=== PATIENT | male | born 1955 | race Caucasian/White ===

== ENCOUNTER 2024-06-22 21:32 | Observation (INO) | payer OTHER, SELFPAY ==
[2024-06-22] VITALS (9 sets, daily range): BP systolic 107–147; BP diastolic 71–91; BMI 29.7
[2024-06-22 18:58] LABS: Glucose - Point of Care 224 mg/dl (70-99)
--- NOTE | 2024-06-22 19:03 | ED.CVA ---
History of Present Illness
General
Chief Complaint: CVA/TIA Symptoms
Time Seen by Provider: 06/22/24 18:58
Onset of Stroke Symptoms
Onset of symptoms known: Yes
Date of onset of symptoms: 06/22/24
Time of onset of symptoms: 18:25
History of Present Illness
History of Present Illness:
68-year-old male with history of diabetes, hypertension, hyperlipidemia presenting to the emergency department with strokelike symptoms. Patient reports he was at work and had sudden onset of right upper and lower extremity weakness, was not able
to move his arm or leg at all. Symptoms started about 30 minutes prior to arrival. By the time medics had arrived, symptoms were improving. Still reports some residual weakness. Denies any issues with dysphagia or sensation. Denies any history
of stroke in the past. He is not on any thinners. Denies fever or recent illness. Denies additional medical complaints
Past History
Past History
ED Past Medical History: HTN and NIDDM
ED Past Surgical History: None
Social History
Tobacco: Non-smoker
Alcohol: Occasional
Personal:
Living: with family
Phy Exam
Physical Exam
Physical Exam:
General: Well-appearing, no clinical signs of dehydration, nontoxic and in no acute distress
HEENT: protecting airway
Neck: appears supple
CV: Normal heart rate, regular rhythm
Resp: No accessory muscle use, no increased work of breathing
Abd: Soft and non-distended, no tenderness to palpation, normal bowel sounds
Extremities: No deformities, no swelling, no erythema, pulses and sensation intact
Neuro: alert, slight weakness to the right upper extremity in comparison to the left. Mild drift to the right lower extremity.
: deferred
Rectal: deferred
Psych: Normal affect
Skin: Intact
Scores
NIH Stroke Score
Level of Consciousness: 0 - Alert
LOC Questions: 0-Answers both correctly
LOC Commands: 0-Performs both correctly
Best Horizontal Gaze: 0-Normal
Visual Hoffman: 0=Normal, no visual loss
Facial Palsy: 0=Normal, symmetrical
Motor - Right Arm: 0=No drift 10 seconds
Motor - Left Arm: 0=No drift 10 seconds
Motor - Right Le-Drift < 5 seconds
Motor - Left Le-No drift 5 seconds
Limb Ataxia: 0-Absent
Sensation: 0-Normal
Best Language: 0-No aphasia
Dysarthria: 0-Normal
Extinction and Inattention: 0-No abnormality
Total Score:: 1
Course
Orders/Labs/Results
Orders:
Orders
06/22/24 18:55
EKG [Electrocardiogram (*1)] Urgent
Reason for Study: Fatigue / Weakness
EKG- Treatment ONCE
06/22/24 18:58
CT HEAD STROKE ALERT W/o Cont Urgent
Comment:
Reason For Exam: right weakness
CT HEAD/NECK ANG STROKE ALERT Urgent
Comment:
Reason For Exam: right weakness
06/22/24 19:24
Complete Blood Count/With Diff Urgent
Comprehensive Metabolic Panel Urgent
PTT Urgent
Prothrombin Time Urgent
Abnormal Lab Results
06/22/24 06/22/24
18:56 19:24
Absolute Monos (auto) 0.7 H 10^3/uL
(0.1-0.6)
Lymphocytes % 19.7 L %
(20.5-51.1)
Monocytes % 9.5 H %
(1.7-9.3)
PT 14.8 H Sec
(11.4-14.6)
BUN 8 L mg/dl
(9-20)
Glucose 245 H mg/dl
(70-99)
POC Glucose 224 H mg/dl
(70-99)
06/22/24 19:24
06/22/24 19:24
Vital Signs
Initial and Last Documented VS:
Initial Vital Signs
Temp Pulse Resp BP Pulse Ox
98.6 F 111 14 147/86 97
06/22/24 19:17 06/22/24 19:17 06/22/24 19:17 06/22/24 19:17 06/22/24 19:17
Last Documented Vital Signs
Temp Pulse Resp BP Pulse Ox
98.6 F 111 14 147/86 97
06/22/24 19:17 06/22/24 19:17 06/22/24 19:17 06/22/24 19:17 06/22/24 19:17
MDM/Problems Addressed
MDM/Problems Addressed:
68-year-old male with history of hypertension, hyperlipidemia, diabetes presenting to the emergency department for right-sided weakness, started 30 minutes prior to arrival. Vital signs on arrival significant for tachycardia.
Patient prehospital stroke alert. On my assessment, mild weakness to the right upper extremity with slight drift to the right lower extremity. NIH 1. Symptoms are overall improving, so do not feel patient requires tPA. Plan for CT/CT angio. Did
discuss with neurology, likely plan for admission for continued stroke workup.
19:00 -CT head and CT angio negative. Will administer aspirin and Plavix. Plan for admission for continued stroke workup, as well as MRI
*Critical Care Note
Total Time (30-74mins, 75-104mins- exclusive of procedures): Not Applicable
ED Attending Note
-
Portions of this chart may have been created with voice recognition software.� Occasional wrong word or��sound alike� substitutions may have occurred due to the inherent limitations of voice recognition software.
Discharge Plan
Departure
Prescriptions:
No Action
cetirizine 10 mg Tablet
10 mg PO DAILY
lisinopril 10 mg Tablet
10 mg PO DAILY
lansoprazole [Prevacid 24Hr] 15 mg Capsule,Delayed Release(Dr/Ec)
15 mg PO DAILYPRN PRN (Reason: gi issues)
pioglitazone 30 mg Tablet
30 mg PO DAILY
Jardiance 25 mg Tablet
25 mg PO DAILY
Interventions
Interventions:
*Risk Screen - Suicide Last Done: 06/22/24 18:55
*General Assessment Last Done: 06/22/24 18:55
*Neglect/Abuse Screening Last Done: 06/22/24 18:55
*ED COVID-19 Vaccine History Last Done: 06/22/24 18:55
ED- Pulmonary Assessment Last Done: 06/22/24 18:55
ED- Neurological Assessment Last Done: 06/22/24 18:55
ED- Cardiac Assessment Last Done: 06/22/24 18:55
Discharge Date and Time
Print Language: SPANISH
[2024-06-22 19:36] LABS: % Basophils 0.8 % (0-2); % Eosinophils 1.2 % (0-6); % Immature Granulocytes 0.4 % (0-0.5); % Lymphocytes 19.7 % (20.5-51.1); % Monocytes 9.5 % (1.7-9.3); % Neutrophils 68.4 % (42.2-75.2); Absolute Basophils 0.1 10^3/uL (0-0.2); Absolute Eosinophils 0.1 10^3/uL (0-0.7); Absolute Lymphocytes 1.5 10^3/uL (1.2-3.4); Absolute Monocytes 0.7 10^3/uL (0.1-0.6); Absolute Neutrophils 5.1 10^3/uL (1.4-6.5); Hematocrit 44.7 % (39.0-52.0); Mean Corp Hgb Conc. 33.6 g/dL (33.0-37.0); Mean Corpuscular Hgb 30.9 pg (27.0-31.0); Mean Corpuscular Volume 92.2 fL (80.0-94.0); Mean Platelet Volume 9.2 fL (7.4-10.4); Nucleated Red Blood Cells % 0 % (-); Platelet Count 207 10^3/uL (130-400); Red Blood Cell Count 4.85 10^6/uL (4.70-6.10); Red Cell Dist. Width 12.8 % (11.5-14.5); White Blood Cell Count 7.5 10^3/uL (4.8-10.8)
[2024-06-22 19:44] LABS: INR 1.13; PT 14.8 Sec (11.4-14.6)
[2024-06-22 19:45] LABS: APTT 29.2 Sec (23.4-35.0)
[2024-06-22 19:51] LABS: ALT (SGPT) 15 U/L (0-50); AST (SGOT) 23 U/L (17-59); Albumin 4.3 g/dl (3.5-5.0); Alkaline Phosphatase 73 U/L (38-126); Blood Urea Nitrogen 8 mg/dl (9-20); Calcium 8.6 mg/dl (8.4-10.2); Carbon Dioxide 25 mmol/L (22-30); Chloride 102 mmol/L (98-107); Estimated Creatinine Clearance 91 ml/min; Glucose 245 mg/dl (70-99); Potassium 3.8 mmol/L (3.5-5.1); Sodium 140 mmol/L (135-145); Total Bilirubin 0.7 mg/dl (0.2-1.3); Total Protein 7.1 g/dl (6.3-8.2); eGFR > 60.00
--- NOTE | 2024-06-22 20:42 | HPS.HSE ---
Family Physician
-
Family Physician: Shravan Mg
Chief Complaint
-
weakness
History of Present Illness
68-year-old male past medical history of diabetes, hypertension, hyperlipidemia, presenting with right-sided weakness. He was at work and suddenly developed right upper and lower extremity weakness and was not able to move his arm or leg at all.
He also had numbness this region. Symptoms started 30 minutes prior to arrival. Symptoms were improving upon arrival. He still has some residual weakness. He denies any difficulty swallowing or numbness or tingling. Denies prior stroke. Denies
any fever or recent illness. He did have mild headache but denies, dizziness or vertigo or difficulty swallowing.
He does not check his blood sugars regularly but denies any episodes of low blood sugars.
Drinks alcohol occasionally. Denies smoking.
No family history of strokes.
Medical History
Past Medical History
Past Medical History: Reports Other (diabetes, hypertension, hyperlipidemia)
Past Surgical History: Reports None
Social History
Tobacco: Non-smoker
Alcohol: Occasional
Family History
Family History: Not pertinent
Allergies / Home Medications
Allergies reflects when Allergies were last updated in [employer].
Home Medications with original date entered in [employer]
Allergy/Medication List:
Allergies
Allergy/AdvReac Type Severity Reaction Status Date / Time
acetaminophen [From Percocet] Allergy Unknown Verified 06/22/24 18:54
oxycodone [From Percocet] Allergy Unknown Verified 06/22/24 18:54
Home Medications
cetirizine 10 mg tablet 10 mg PO DAILY 06/22/24
empagliflozin 25 mg tablet (Jardiance) 25 mg PO DAILY 06/22/24
lansoprazole 15 mg capsule,delayed release (Prevacid 24Hr) 15 mg PO DAILYPRN PRN gi issues 06/22/24
lisinopril 10 mg tablet 10 mg PO DAILY 06/22/24
pioglitazone 30 mg tablet 30 mg PO DAILY 06/22/24
Review of Systems
-
History Source: Patient
A 12 point ROS was completed and negative except as noted: Yes
Constitutional: Reports No Symptoms
EENT: Reports No Symptoms
Respiratory: Reports No Symptoms
Cardiac: Reports No Symptoms
Abdomen/GI: Reports No Symptoms
: Reports No Symptoms
Musculoskeletal: Reports No Symptoms
Skin: Reports No Symptoms
Neurological: Reports See HPI
Endocrine: Reports No Symptoms
Hematologic/Lymphatic: Reports No Symptoms
Psych: Reports No Symptoms
Physical Exam
Vital Signs
Vital Signs
Temp Pulse Resp BP Pulse Ox
98.6 F 99 12 145/80 97
06/22/24 19:17 06/22/24 20:12 06/22/24 20:00 06/22/24 20:00 06/22/24 20:00
Physical Exam
General: Well Developed, Well Nourished and No Apparent Distress
HEENT: NormoCephalic, Moist mucous membranes and Atraumatic
Respiratory: Clear
Cardiac: S1/S2 and Regular Rhythm; No Murmur or Rub
GI: Soft, Non Tender, Non Distended and Normal Bowel Sounds; No Organomegaly
Rectal: Deferred by Provider
Musculoskeletal: No Clubbing, No Cyanosis and No Edema
Skin: No Rash
Neuro: Nonfocal/grossly intact
Laboratory Results
-
06/22/24 19:24
06/22/24 19:24
Laboratory Results
PT 14.8 Sec (11.4-14.6) H 06/22/24 19:24
INR 1.13 06/22/24 19:24
APTT 29.2 Sec (23.4-35.0) 06/22/24 19:24
Total Bilirubin 0.7 mg/dl (0.2-1.3) 06/22/24 19:24
AST 23 U/L (17-59) 06/22/24 19:24
ALT 15 U/L (0-50) 06/22/24 19:24
Alkaline Phosphatase 73 U/L (38-126) 06/22/24 19:24
Data Reviewed
-
Lab Data: Labs Reviewed by me
Old Records: Reviewed
Impression/Plan
-
IMPRESSION:
PLAN:
# TIA versus CVA
-NIH of 1
-CTA head and neck shows no acute vascular pathology
-Aspirin and Plavix
-Check A1c and lipid panel
-Check MRI brain
-Permissive hypertension
-Neurology consulted
Type 2 diabetes
-Continue empagliflozin, pioglitazone
Essential hypertension
-Continue lisinopril
Hyperlipidemia
GERD
-Continue lansoprazole
Full code
DVT prophylaxis�SCDs
Diabetic diet
[2024-06-22] MEDS: MOTRIN 600 MG PO (21:01)
[2024-06-22] MEDS: PLAVIX 75 MG PO (22:22)
[2024-06-22] MEDS: ASPIRIN 325 MG PO (22:22)
[2024-06-22] MEDS: FLUSH (NSS) 1 FLUSH IV (22:52)
[2024-06-23] VITALS (15 sets, daily range): BP systolic 100–143; BP diastolic 55–88; PULSE 92–95; O2SAT 97–98; BMI 28.0
[2024-06-23 07:01] LABS: HDL Cholesterol 44 mg/dl; LDL Cholesterol, Calculated 164 mg/dl; Total Cholesterol 229 mg/dl (50-199); Triglyceride 105 mg/dl (10-149); Very Low Density Lipoprotein 21 mg/dl (0-30)
--- NOTE | 2024-06-23 07:50 | EDRN ---
Provider TT for diet order
[2024-06-23] MEDS: ACTOS 30 MG PO (08:22)
[2024-06-23] MEDS: ZESTRIL 10 MG PO (08:22)
[2024-06-23] MEDS: FARXIGA 10 MG PO (08:22)
--- NOTE | 2024-06-23 08:37 | CON.NEURO ---
Neuro Assessment/Plan
Assessment
Acute onset of right arm and leg weakness with spontaneous resolution
Most likely secondary to TIA based on MRI of brain results failed to demonstrate a area of permanent structural damage
Plan
Provide dual antiplatelet therapy aspirin and clopidogrel for a total of 21 days, then aspirin alone, lifelong
Based on lipid profile, initiate rosuvastatin 40 mg daily as the patient was intolerant to the use of a statin previously
Goal of normoglycemia
Goal of normotension
Rehabilitation evaluations
DVT prophylaxis
Provide medical educational materials
Check hypercoagulable testing 6 weeks after onset of symptoms
Cardiac monitoring as an outpatient preferably 7 days
Will follow as needed
Consultation
Order
Date of Consultation: 06/23/24
Requesting Provider: Hospitalists
Reason for Consult: Right-sided weakness
Subjective/Objective
Subjective Data
Date of Service: June 23, 2024
Right-Handed
68-year-old male presented to this hospital's emergency department with acute onset right-sided weakness. He was at work and suddenly developed right upper then right lower extremity weakness. At the time was not able to move his arm or leg at
all. He also had numbness this region.
Symptoms were improving upon arrival to this hospital's emergency department. Symptoms lasted less than 2 hours and is now back at baseline. No other associated symptoms.
No prior episodes, no significant medical changes recently.
Right sided posterior headache intermittently throughout the night which has spontaneously resolved.
Objective Data
Vital Signs
Temp Pulse Resp BP Pulse Ox
37.0 C 90 14 123/84 94
06/22/24 19:17 06/23/24 08:22 06/23/24 07:45 06/23/24 08:22 06/23/24 07:45
Lab Results
06/22/24 19:24
06/22/24 19:24
PT 14.8 Sec (11.4-14.6) H 06/22/24 19:24
INR 1.13 06/22/24 19:24
APTT 29.2 Sec (23.4-35.0) 06/22/24 19:
Sodium 140 mmol/L (135-145) 06/22/24 19:24
Potassium 3.8 mmol/L (3.5-5.1) 06/22/24:
BUN 8 mg/dl (9-20) L 06/22/24 19:24
Glucose 245 mg/dl (70-99) H 06/22/24:24
Calcium 8.6 mg/dl (8.4-10.2) 06/22/24:
LDL Cholesterol, Calc 164 mg/dl 06/23/24 06:18
Patient Allergies
acetaminophen [From Percocet] Allergy (Verified 06/22/24 18:54)
Unknown
oxycodone [From Percocet] Allergy (Verified 06/22/24 18:54)
Unknown
CVA Assessment
Onset of Stroke Symptoms
Onset of symptoms known: Yes
Date of onset of symptoms: 06/22/24
Time of onset of symptoms: 18:30
Time pt last seen normal is known: Yes
Date last time pt seen normal: 06/22/24
Time last time pt seen normal: 20:00
NIH Stroke Score
Level of Consciousness: 0 - Alert
LOC Questions: 0-Answers both correctly
LOC Commands: 0-Performs both correctly
Best Horizontal Gaze: 0-Normal
Visual Hoffman: 0=Normal, no visual loss
Facial Palsy: 0=Normal, symmetrical
Motor - Right Arm: 0=No drift 10 seconds
Motor - Left Arm: 0=No drift 10 seconds
Motor - Right Le-No drift 5 seconds
Motor - Left Le-No drift 5 seconds
Limb Ataxia: 0-Absent
Sensation: 0-Normal
Best Language: 0-No aphasia
Dysarthria: 0-Normal
Extinction and Inattention: 0-No abnormality
Total Score:: 0
Tenecteplase Contraindications
Inclusion and Exclusion criteria reviewed: Yes
IAT Contraindications: NIHSS < 6
Review of Systems
-
History Source: Patient
All other systems: Reviewed and negative
EENT: Negative Decreased Vision or Swallowing Difficulty
Respiratory: Negative Trouble Breathing
Cardiac: Negative Chest Pain
Abdomen/GI: Negative Incontinence of Stool
Genitourinary: Negative Incontinence
Musculoskeletal: Negative Back Pain or Neck Pain
Neuro: Headache; Negative Dizzy
Physical Exam
-
General: No Apparent Distress and Appears Stated Age
Eyes: OU Absent Papilledema, Round OU, [place] Conjunctivae and No Ptosis
HEENT: Anicteric and Moist Mucous Membranes
Neck: Full Range of Motion
Respiratory: No Dyspnea
Cardiac: No JVD
GI: Non-distended
Skin: Unremarkable
Extremities: No Clubbing, No Cyanosis and No Edema
Psych: Intact Judgement/Insight
Extended Neurological Exam
Mood & Affect: Mood Unremarkable and Affect Unremarkable
Attention Span & Concentration: Awake, Alert, Interactive and No Difficulty with 2 Step Request
Memory: Unremarkable
Tremor: Hand Tremor Absent and Head Tremor Absent
Speech: Quality Unremarkable and Pressured
Cranial Nerve II: Left Eye: Pupillary Reactivity Unremarkable, Pupillary Size Unremarkable and Visual Hoffman Intact
Cranial Nerve II: Right Eye: Pupillary Reactivity Unremarkable, Pupillary Size Unremarkable and Visual Hoffman Intact
Cranial Nerves III, IV, : Extraocular Movement: Extraocular Movement Full in all Directions
Cranial Nerve VII: Facial Symmetry: Normal Facial Symmetry
Cranial Nerve VIII: Hearing: Unremarkable Hearing to Normal Conversational Volume
Cranial Nerves IX, X: Palate Movement: Palate Elevation Symmetric
Cranial Nerve XI: Shoulder Shrug: Unremarkable
Cranial Nerve XII: Tongue Protusion: Midline
Muscle Strength, Overall: Full Throughout
Muscle Bulk & Tone: Bulk Unremarkable and Tone Unremarkable
Pronator Drift: No Drift in Upper Extremities
Deep Tendon Reflexes: Absent Throughout
Touch Sensation: Unremarkable and Double Simultaneous Stimulation Unremarkable
Coordination: [id number] Testing Unremarkable
Babinski Sign: Absent Bilaterally
Data Reviewed
-
CT-A: Report Reviewed
CT Head: Report Reviewed
MRI Head: Report Reviewed
Labs: Report Reviewed
Lipid Profile: Ordered
Reviewed with: Physician, Nurse Practioner and Patient
Old Records: Summarized
Medications
-
Active Medications
Generic Name Dose Route Start Last Admin
Trade Name Freq PRN Reason Stop Dose Admin
Acetaminophen 650 mg 06/23/24 08:21
Acetaminophen 325 Mg Tablet PO 07/21/24 08:20
Q4HPRN PRN
mild pain/JACKSON/temp> 100.4F
Cetirizine HCl 10 mg 06/23/24 08:00 06/23/24 08:24
Cetirizine Hcl 10 Mg Tablet PO 07/21/24 07:59 Not Given
DAILY ROMY
Dapagliflozin 10 mg 06/23/24 08:00 06/23/24 08:22
Dapagliflozin (Farxiga) 10 Mg Tablet PO 07/21/24 07:59 10 mg
DAILY ROMY Administration
Dextrose 12.5 grams 06/23/24 08:22
Dextrose 50% (0.5 Grams/Ml) 50 Ml Syringe IV 07/21/24 08:21
[id number] PRN
hypoglycemia
Protocol
Glucagon 1 mg 06/23/24 08:22
Glucagon 1 Mg Vial IM 07/21/24 08:21
PRN PRN
hypoglycemia
Protocol
Insulin Aspart 0 units 06/23/24 11:30
Insulin Aspart Low Resistance 300 Units/3 Ml Pen.Injctr SC 07/21/24 11:29
AC ROMY
Protocol
Lisinopril 10 mg 06/23/24 08:00 06/23/24 08:22
Lisinopril 10 Mg Tablet PO 07/21/24 07:59 10 mg
DAILY ROMY Administration
Ondansetron HCl 4 mg 06/23/24 08:21
Ondansetron 4 Mg/2 Ml Vial IV 07/21/24 08:20
Q6HPRN PRN
nausea and vomiting
Pantoprazole Sodium 20 mg 06/22/24 21:58
Pantoprazole 20 Mg Delayed Release Tablet PO 07/20/24 21:57
DAILYPRN PRN
gi issues
Pioglitazone HCl 30 mg 06/23/24 08:00 06/23/24 08:22
Pioglitazone Hcl 30 Mg Tablet PO 07/21/24 07:59 30 mg
DAILY ROMY Administration
Sodium Chloride 0 flush 06/22/24 22:00 06/22/24 22:52
Sodium Chloride 0.9% (Flush) Syringe IV 07/20/24 21:59 1 flush
PER PROTOCOL ROMY Administration
Home Medications
�Medication �Instructions �Recorded
cetirizine 10 mg tablet 10 mg PO DAILY 06/22/24
empagliflozin 25 mg tablet 25 mg PO DAILY 06/22/24
(Jardiance)
lansoprazole 15 mg capsule,delayed 15 mg PO DAILYPRN PRN gi issues 06/22/24
release (Prevacid 24Hr)
lisinopril 10 mg tablet 10 mg PO DAILY 06/22/24
pioglitazone 30 mg tablet 30 mg PO DAILY 06/22/24
Past History
Past History
ED Past Medical History: HTN, Hypercholesterolemia and NIDDM
ED Past Surgical History: Appendectomy and Orthopedic (Arthroplasty)
Social History
Tobacco: Non-smoker
Alcohol: Occasional
Personal:
Living: with family
Family History
Family History: Other (Reviewed and noncontributory)
[2024-06-23 08:58] LABS: Glycohemoglobin (HgbA1c) 8.3 % (4.0-5.6)
[2024-06-23] MEDS: ASPIR LOW (ENTERIC COATED) 81 MG PO (09:29)
[2024-06-23] MEDS: PLAVIX 75 MG PO (09:30)
[2024-06-23] MEDS: TRILEPTAL 150 MG PO (10:22)
[2024-06-23 13:11] LABS: Glucose - Point of Care 182 mg/dl (70-99)
[2024-06-23] MEDS: NOVOLOG FLEXPEN-LOW RESISTANCE 1 UNITS SC (13:11)
--- NOTE | 2024-06-23 13:26 | CON.CAR ---
Addendum entered and electronically signed by Kirill Key MD 06/23/24 16:18:
I saw and examined the patient.
The DYE COLORIST FORMULATOR's note was reviewed and I agree with the note.
Comment: 68 yo with AoV disease, HTN, DM, mixed hyperlipidemia with an impressive TIA (Right hemiparesis) last about 2 hours. CTA of neck/head negative. CT/MR of head negative for bleed/stroke. We will begin our evaluation with in-hospital
telemetry and echo. For TIA at his age I am not sure we have an indication for a AFTAB or insertable loop monitor but will likely pursue a 30 day monitor.
Will review echo. I reviewed signs and symptoms of aortic stenosis that would prompt evaluation to consider aortic valve replacement.
Aggressive risk factor control (DM/lipids/BP) per PCP will be appropriate. Antiplatelet therapy directed by neurology will be appropriate. We have initiated high intensity statin. Years ago he stopped a statin for knee pain. I explained that
statin side effect is much more muscular pain and not so much joint pain. He agreed to retry statin. He has no heart failure sx, no syncope, and no anginal symptoms.
Original Note:
Consultation
Consultation Request
Date/Time Consultation Requested: 06/23/2024 12:30
Date/Time Consultation Performed: 06/23/2024 13:15
Requesting Provider: Dr. Aurelia Rutherford
Performing Provider: TED Mcmullen for Dr. Key
Reason for Consultation: TIA
Medical History
-
Chief Complaint: Right-sided weakness
History of Present Illness:
Rodriguez High is a 68-year-old male with hypertension, dyslipidemia, and NIDDM who presented with the emergency department with acute onset right-sided weakness. He was working when he had a sudden onset of right upper than lower extremity
weakness. He was unable to move his arm and leg at all. He also reported numbness. It lasted approximately 20 minutes. It had resolved when he arrived to the emergency department. He endorsed an associated posterior right sided headache the
night prior which spontaneously resolved. He has been evaluated by neurology. Cardiology has been asked for consultation.
Past Medical History
Past Medical History: HTN, Hypercholesterolemia and NIDDM
Social History
Tobacco: Non-Smoker
Alcohol: Occasional
Drug: None
Personal:
Living: With Family
Employment: Employed
Family History
Family History: Reviewed & Not Pertinent
Allergies / Home Medications
Allergy/AdvReac Type Severity Reaction Status Date / Time
acetaminophen [From Percocet] Allergy Unknown Verified 06/22/24 18:54
oxycodone [From Percocet] Allergy Unknown Verified 06/22/24 18:54
�Medication �Instructions �Recorded �Confirmed �Type
cetirizine 10 mg tablet 10 mg PO DAILY Allergies 06/22/24 06/22/24 History
empagliflozin 25 mg tablet 25 mg PO DAILY Heart 06/22/24 06/22/24 History
(Jardiance) Disease/Condition
lansoprazole 15 mg capsule,delayed 15 mg PO DAILYPRN PRN gi issues 06/22/24 06/22/24 History
release (Prevacid 24Hr)
lisinopril 10 mg tablet 10 mg PO DAILY Blood Pressure 06/22/24 06/22/24 History
pioglitazone 30 mg tablet 30 mg PO DAILY Diabetes 06/22/24 06/22/24 History
Review of Systems
-
History Source: Patient
All other systems: Negative unless noted
Constitutional: No Symptoms
EENT: No Symptoms
Respiratory: No Symptoms
Cardiac: No Symptoms
Abdomen/GI: No Symptoms
: No Symptoms
Musculoskeletal: No Symptoms
Skin: No Symptoms
Neurological: No Symptoms
Endocrine: No Symptoms
Hematologic/Lymphatic: No Symptoms
Physical Exam
Vital Signs
Temp Pulse Resp BP Pulse Ox
98.6 F 91 14 119/81 96
06/22/24 19:17 06/23/24 12:00 06/23/24 12:00 06/23/24 12:00 06/23/24 12:00
Lab Results
06/22/24 19:24
06/22/24 19:24
Physical Exam
General: Well Developed, Well Nourished, No Apparent Distress and Comfortable
HEENT: Normocephalic, Anicteric and Moist Mucous Membranes
Respiratory: Clear and Non Labored Respirations
Cardiac: S1/S2, Regular Rhythm and Murmur; Negative Peripheral Edema
Breast: Deferred by me
GI: Soft, Non Tender, Non Distended and Normal Bowel Sounds
Rectal: Deferred by Provider
Genito-urinary: No Costovertebral Tender
Musculoskeletal: No Clubbing, No Cyanosis and No Edema
Skin: Warm and Dry
Neuro: AO x 3
Hematologic/Lymphatic: No Lymphadenopathy
Psych: Calm
Impression / Plan
-
TIA
-No residual deficit
-Now on DAPT (aspirin, clopidogrel) for 21 days
-MRI did not demonstrate infarct
-Glucose control and lipid control per primary service
-Echocardiogram with bubble ordered
-No atrial fibrillation on review of telemetry, will plan for 2 weeks of outpatient cardiac monitoring
Hypertension
-BP controlled on lisinopril 10 mg
Dyslipidemia
-He reports some statin intolerance, he is not sure which one
-Given TIA and NIDDM, goal LDL <70
-LDL 164, retrial of high intensity statin
VANESSA, echocardiogram
NIDDM, uncontrolled, HgbA1c 8.3%
LAFB, chronicity unknown
Data Reviewed
-
EKG: Report Reviewed by me (Sinus tachycardia, LAFB, rate 112)
--- NOTE | 2024-06-23 14:18 | PTCARENOTE ---
seen in ED 39 inpatient observation for agitated saline contrast echocardiography. agitated saline injections x 2 per protocol, valsalva on second injection, images obtained. Tolerated.
--- NOTE | 2024-06-23 14:34 | W.PN.HOSP.TC ---
Today's Communication/Plan
-
await Cards recs
Assessment / Plan
Assessment / Plan
Assessment:
TIA
- continue ASA/Plavix x 3 weeks, then lifelong daily ASA
- MRI negative
- A1c: 8.3%
- LDL: 164; continue statin
- Neuro consulting
- Cards consulting; awaiting records on Echo/bubble study and plans for outpatient monitoring
Type 2 diabetes
- continue empagliflozin, pioglitazone
Essential hypertension
- continue lisinopril
Hyperlipidemia
GERD
- continue lansoprazole
DVT ppx: SCDs
Code: Full
Anticipated Discharge: Within 24 hours
Subjective/Interval History
-
Date of Service: June 23, 2024
no acute complaints
Objective Data
-
Vital Signs:
Vital Signs
Temp Pulse Resp BP Pulse Ox
98.6 F 91 14 119/81 96
06/22/24 19:17 06/23/24 12:00 06/23/24 12:00 06/23/24 12:00 06/23/24 12:00
Physical Exam
-
General: No Apparent Distress
HEENT: Normocephalic and Atraumatic
Respiratory: Negative Wheezes
Cardiac: Regular Rhythm and S1/S2
GI: Soft
Musculoskeletal: No Edema
Neuro: AO x 3
Hematologic / Lymphatic: No Lymphadenopathy
Psych: Calm
Data Reviewed
-
Total Time Spent with Patient (in minutes): 41
Labs: Labs Reviewed by me
--- NOTE | 2024-06-23 16:48 | PTOTSP ---
Pt presents to OT with good b/l UE AROM, strength, sensation and coordination. Cognition is grossly intact but not formally assessed. Vision and perception grossly WFL. Currently at independent level with basic ADLs, transfers and functional
mobility in room and bathroom without AD. No further skilled OT indicated at this time. Will sign off
[2024-06-23 17:26] LABS: Glucose - Point of Care 146 mg/dl (70-99)
[2024-06-23] MEDS: NOVOLOG FLEXPEN-LOW RESISTANCE SC (17:35)
[2024-06-23] MEDS: CRESTOR 40 MG PO (18:01)
[2024-06-23] MEDS: TYLENOL 650 MG PO (20:23)
[2024-06-23 21:04] LABS: Glucose - Point of Care 141 mg/dl (70-99)
[2024-06-24 03:21] VITALS: BP 105/69
[2024-06-24 06:00] VITALS: BMI 27.8
[2024-06-24] MEDS: TYLENOL 650 MG PO (06:06)
[2024-06-24 07:47] VITALS: BP 127/85
[2024-06-24 08:04] LABS: Glucose - Point of Care 163 mg/dl (70-99)
[2024-06-24] MEDS: ZESTRIL 10 MG PO (09:02)
[2024-06-24] MEDS: PLAVIX 75 MG PO (09:02)
[2024-06-24] MEDS: ASPIR LOW (ENTERIC COATED) 81 MG PO (09:02)
[2024-06-24] MEDS: FARXIGA 10 MG PO (09:02)
[2024-06-24] MEDS: ACTOS 30 MG PO (09:02)
[2024-06-24] MEDS: NOVOLOG FLEXPEN-LOW RESISTANCE 1 UNITS SC (09:03)
--- NOTE | 2024-06-24 09:50 | W.PN.HOSP.TC ---
Today's Communication/Plan
-
dc to home
Assessment / Plan
Assessment / Plan
Assessment:
TIA
- continue ASA/Plavix x 3 weeks, then lifelong daily ASA
- MRI negative
- A1c: 8.3%
- LDL: 164; continue statin
- Neuro recs appreciated
- Cards recs appreciated
- Echo: Normal biventricular size and systolic function without regional wall motion abnormality. Mild concentric left ventricular hypertrophy. Severe aortic stenosis (DERRELL 1 cmsq, mean gradient 72 mmHg). Possible bicuspid calcified aortic valve.
Right heart pressures could not be determined. No intracardiac mass or thrombus formation seen. Negative bubble study with and without Valsalva. Compared to prior study of 2013 has progressed from mild to severe.
- Cardiology to arrange 30 day monitor as well
PVCs on tele <3 secs
- asymptomatic
- monitor
Type 2 diabetes
- continue empagliflozin, pioglitazone
Essential hypertension
- continue lisinopril
Hyperlipidemia
GERD
- continue lansoprazole
DVT ppx: SCDs
Code: Full
More than 30 minutes spent in discharge including
Final examination of the patient
Summarizing hospital stay
Instructions for continuing care to all relevant caregivers
Preparation of discharge records, prescriptions, and referral forms
Total time spent (in minutes):41
Anticipated Discharge: Today
Subjective/Interval History
-
Date of Service: June 24, 2024
denies any new complaints at present
Objective Data
-
Vital Signs:
Vital Signs
Temp Pulse Resp BP Pulse Ox
97.6 F 80 18 127/85 97
06/24/24 07:47 06/24/24 09:02 06/24/24 07:47 06/24/24 09:02 06/24/24 07:47
I&O
1206/24/24 06/25/24
06:59 06:59 06:59
Intake Total 840 / 840
Balance 840 / 840
Physical Exam
-
General: No Apparent Distress
HEENT: Normocephalic and Atraumatic
Respiratory: Negative Wheezes
Cardiac: Regular Rhythm and S1/S2
GI: Soft
Genito-urinary: No Costovertebral Tender
Musculoskeletal: No Edema
Neuro: AO x 3
Hematologic / Lymphatic: No Lymphadenopathy
Psych: Calm
Data Reviewed
-
Total Time Spent with Patient (in minutes): 42
Labs: Labs Reviewed by me
--- NOTE | 2024-06-24 09:54 | W.DS.TRANS ---
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
-
Discharge Instructions:
Discharge Diagnosis/Procedures TIA
Diet Diabetic, Carb Controlled
Activity As tolerated
Bathing Restrictions None
Others Tests gambling monitor to be arranged by Cardiology
office
Instructions:
Stand-Alone Forms:
Changes to Home Medications: No
Discharge Medications:
DC Medications w/original date entered in [facility]
cetirizine 10 mg tablet 10 mg PO DAILY Allergies 06/22/24
empagliflozin 25 mg tablet (Jardiance) 25 mg PO DAILY Heart Disease/Condition 06/22/24
lansoprazole 15 mg capsule,delayed release (Prevacid 24Hr) 15 mg PO DAILYPRN PRN gi issues 06/22/24
lisinopril 10 mg tablet 10 mg PO DAILY Blood Pressure 06/22/24
pioglitazone 30 mg tablet 30 mg PO DAILY Diabetes 06/22/24
aspirin 81 mg tablet,delayed release 81 mg PO DAILY #100 tabs 06/23/24
clopidogrel 75 mg tablet 75 mg PO DAILY #21 tabs 06/23/24
rosuvastatin 40 mg tablet 40 mg PO QPM #30 tabs 06/23/24
Home Medication Changes
Pending Results: No
Total time spent discharging patient (in min): 41
[2024-06-24] MEDS: FLUAD (65 yr+) 2024-2025 FORMULA 0.5 ML IM (10:30)
--- NOTE | 2024-06-24 10:34 | CM ---
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
case as he had just finished his shift when the incident occurred. welding manager reached out to admissions and they plan on following up with patient regarding workers comp information. 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
Patient was admitted under OBS, OBS letter signed and placed on chart.
PCP: Dr. Shravan Mg
Pharmacy: [facility] in [place]
Plan; Home today with spouse no needs.
== END 2024-06-24 12:04 | disposition home or self-care (01) ==
LOC: 4 EAST ACU 21:32
PROVIDERS: ADMITTING PHYSICIAN Hospitalist; ATTENDING PHYSICIAN Internal Medicine; CONSULT PHYSICIAN Psychiatry & Neurology Neurology; EMERGENCY PHYSICIAN Student in an Organized Health Care Education/Training Program; FAMILY PHYSICIAN Family Medicine; OTHER PHYSICIAN Internal Medicine Cardiovascular Disease
DX: G45.9 Transient cerebral ischemic attack, unspecified (principal); Z23 Encounter for immunization; E11.9 Type 2 diabetes mellitus without complications; I10 Essential (primary) hypertension; E78.00 Pure hypercholesterolemia, unspecified; I49.3 Ventricular premature depolarization; K21.9 Gastro-esophageal reflux disease without esophagitis; I35.0 Nonrheumatic aortic (valve) stenosis; R29.701 NIHSS score 1; Z79.84 Long term (current) use of oral hypoglycemic drugs; G81.91 Hemiplegia, unspecified affecting right dominant side; Z79.899 Other long term (current) drug therapy; Z83.3 Family history of diabetes mellitus; Z88.5 Allergy status to narcotic agent; Z90.49 Acquired absence of other specified parts of digestive tract
CPT/HCPCS: 70450; 70496; 70498; 70551; 80053; 80061; 82962; 83036; 85025; 85610; 85730; 90662; 93005; 93306; 97161; 97165; 99285; G0008; G0378; Q9967

== ENCOUNTER 2024-08-24 07:50 | Day surgery (SDC) | payer OTHER, SELFPAY ==
[2024-08-24] VITALS (13 sets, daily range): BP systolic 119–165; BP diastolic 67–85; BMI 29.2
[2024-08-24 08:39] LABS: Glucose - Point of Care 177 mg/dl (70-99)
--- NOTE | 2024-08-24 10:32 | ITS.CL.CATH ---
Digital Media Specialist - Catheterization
Cardiac Catheterization
Procedure Report:
CARDIAC CATHETERIZATION REPORT
Date of Procedure: 08/24/2024
Referring: TED Jaffe, Kirill Key M.D.
Indication: Severe aortic valve stenosis, anginal symptoms.
PROCEDURE:
1. Right heart catheterization.
2. Coronary angiography.
A total of 8 minutes of procedural/moderate sedation was utilized. An independent medical insurance verifier was present to assist with and help manage the patient's level of consciousness and physiologic status.
ACCESS:
1. 6 Marshallese right radial artery using a modified Seldinger technique delete.
2. 5 Marshallese right antecubital vein using a previously placed IV.
CATHETERS:
1. 5 Marshallese balloon.
2. 5 Marshallese JR4.
3. 5 Marshallese JL 3.5.
HEMODYNAMIC DATA
Weight (kg): 82.1
AO (s/d/x, mmHg): 120/72/92
LV (s/x, mmHg): Not obtained.
PCWP (a/v/x, mmHg): 24/21/18
PA (s/d/x, mmHg): 39/20/26
RV (s/x, mmHg): 39/8
RA (a/v/x, mmHg): 14/11/9
SVC SvO2 (%): 78.4
IVC SvO2 (%): Not obtained
RA SvO2 (%): Not obtained
RV SvO2 (%): Not obtained.
PA SvO2 (%): 75.6
SaO2 (%): 97.5
Hbg (g/dL): 14.4
ANDREA
CO (L/min): 5.54
CI (L/min/m2): 2.88
Thermodilution
CO (L/min): Not performed
CI (L/min/m2): Not performed.
TPG (mmHg): 8
PVR (Allison Units): 1.44
SVR (dynes*seconds*cm^-5): 1199
AVO2 Diff (Volume %): 4.29
AV gradient (x, mmHg): Not obtained.
AV area (cm2): Not obtained.
MV gradient (x, mmHg): Not obtained.
MV area (cm2): Not obtained.
LEFT VENTRICULOGRAPHY: Not performed.
AORTOGRAPHY: Not performed.
CORONARY ANGIOGRAPHY
Dominance: Right.
Left Main: Large size, trifurcating vessel. There is no coronary artery disease.
LAD: Large size vessel giving rise to 2 significant diagonals. There is a 70% lesion in the mid LAD, immediately after the origin of the first diagonal.
Ramus: Small to medium size vessel with luminal irregularities.
Circumflex: Small to medium size vessel giving rise to several small obtuse marginals before terminating as a left posterolateral branch. There is a 70% lesion in the proximal vessel.
RCA: Large size, dominant vessel with a large posterolateral branch. There is an 80-90% lesion in the ostium of the RPDA. There is a 70% lesion in the mid RPDA.
INTERVENTIONS
None.
Closure Device: Vascular band for the right radial artery, manual pressure for the right antecubital vein.
Radiation dose (mGy): 297.46
DAP (cm2.Gy): 25.2141
Fluoroscopy time (minutes): 2.0
CONCLUSIONS:
1. Right dominant circulation with a 70% lesion in the mid LAD, a 70% lesion in the proximal circumflex and an 80-90% lesion in the ostium of the RPDA followed by a 70% mid RPDA lesion.
2. Mildly elevated filling pressures (PCWP = 18 mmHg at 82.1 kg).
3. Severe to critical aortic valve stenosis by echocardiography.
RECOMMENDATIONS:
1. Expectant management after cardiac catheterization via right radial/antecubital approach.
2. Limited weight bearing on the right wrist for one week.
3. Referral to CT surgery for consideration of surgical aortic valve replacement and three-vessel bypass.
4. Aggressive secondary prevention with high-dose, high potency statin. Goal LDL <55.
5. OMT/GDMT as hemodynamics will tolerate.
Copy to: Mariza Toney CRNP, Shravan Mg M.D.
Markell Bautista DO, FACC, FACP
[2024-08-24] MEDS: NSS 246 ML IV (11:09)
[2024-08-24] MEDS: NSS 1000 IV (11:10)
== END 2024-08-24 14:00 | disposition home or self-care (01) ==
LOC: CATH 07:50
PROVIDERS: ATTENDING PHYSICIAN Internal Medicine Cardiovascular Disease; CONSULT PHYSICIAN Thoracic Surgery (Cardiothoracic Vascular Surgery); FAMILY PHYSICIAN Family Medicine; OTHER PHYSICIAN Internal Medicine Cardiovascular Disease; OTHER PHYSICIAN Nurse Practitioner
DX: I25.10 Atherosclerotic heart disease of native coronary artery without angina pectoris (principal); I35.0 Nonrheumatic aortic (valve) stenosis; I10 Essential (primary) hypertension; E78.5 Hyperlipidemia, unspecified; E11.9 Type 2 diabetes mellitus without complications; K21.9 Gastro-esophageal reflux disease without esophagitis; Z86.73 Personal history of transient ischemic attack (TIA), and cerebral infarction without residual deficits; Z87.891 Personal history of nicotine dependence; Z79.84 Long term (current) use of oral hypoglycemic drugs; Z79.82 Long term (current) use of aspirin
CPT/HCPCS: 82962; 93454; C1894; Q9967

== ENCOUNTER → 2024-09-02 11:53 | Outpatient (REF) | payer OTHER, MEDICARE, SELFPAY | LOC: RAD 11:53 | PROVIDERS: ATTENDING PHYSICIAN Thoracic Surgery (Cardiothoracic Vascular Surgery) | DX: Z01.810 Encounter for preprocedural cardiovascular examination (principal) | CPT/HCPCS: 75572; 94010; Q9967 ==

== ENCOUNTER 2024-09-07 04:46 | Inpatient (IN) | payer OTHER, MEDICARE, SELFPAY ==
[2024-08-27 08:31] VITALS: BMI 30.1
[2024-08-27 09:19] LABS: Urine Albumin 2+ (Neg - Trace); Urine Bilirubin Negative (Negative); Urine Character Clear (Clear); Urine Color Yellow; Urine Glucose 4+ (Negative); Urine Ketone Negative (Negative); Urine Leukocyte Negative (Negative); Urine Nitrite Negative (Negative); Urine Occult Blood Negative (Negative); Urine Urobilinogen Negative (Neg - 1+)
[2024-08-27 09:21] LABS: % Basophils 0.7 % (0-2); % Immature Granulocytes 0.3 % (0-0.5); % Lymphocytes 19.6 % (20.5-51.1); % Monocytes 8.7 % (1.7-9.3); % Neutrophils 68.7 % (42.2-75.2); Absolute Basophils 0.1 10^3/uL (0-0.2); Absolute Eosinophils 0.2 10^3/uL (0-0.7); Absolute Lymphocytes 1.9 10^3/uL (1.2-3.4); Absolute Monocytes 0.8 10^3/uL (0.1-0.6); Absolute Neutrophils 6.5 10^3/uL (1.4-6.5); Hematocrit 44.7 % (39.0-52.0); Hemoglobin 15.1 g/dL (13.0-18.0); Mean Corp Hgb Conc. 33.8 g/dL (33.0-37.0); Mean Corpuscular Hgb 31.1 pg (27.0-31.0); Mean Corpuscular Volume 92.2 fL (80.0-94.0); Mean Platelet Volume 9.9 fL (7.4-10.4); Nucleated Red Blood Cells % 0 % (-); Platelet Count 209 10^3/uL (130-400); Red Blood Cell Count 4.85 10^6/uL (4.70-6.10); White Blood Cell Count 9.4 10^3/uL (4.8-10.8)
[2024-08-27 09:33] LABS: APTT 29.2 Sec (23.4-35.0); INR 1.02; PT 13.9 Sec (11.4-14.6)
[2024-08-27 09:45] LABS: Urine Amorphous Seen; Urine Hyaline Cast 0-2 /LPF (0-2); Urine Red Blood Cell 0-2 /HPF (0-2); Urine White Cell 0-2 /HPF (0-5)
[2024-08-27 10:00] LABS: ALT (SGPT) 17 U/L (0-50); AST (SGOT) 23 U/L (17-59); Albumin 4.8 g/dl (3.5-5.0); Alkaline Phosphatase 76 U/L (38-126); Blood Urea Nitrogen 17 mg/dl (9-20); Calcium 9.2 mg/dl (8.4-10.2); Carbon Dioxide 27 mmol/L (22-30); Chloride 95 mmol/L (98-107); Direct Bilirubin 0.3 mg/dl (0.0-0.4); Estimated Creatinine Clearance 75 ml/min; Glucose 177 mg/dl (70-99); Potassium 4.3 mmol/L (3.5-5.1); Sodium 135 mmol/L (135-145); Total Bilirubin 1.3 mg/dl (0.2-1.3); Total Protein 7.6 g/dl (6.3-8.2); eGFR > 60.00
--- NOTE | 2024-08-27 10:43 | CM ---
CM following for DC planning needs.
Met w/ patient during PATs for planned CT Surgery, 09/07.
Pt. reports that he resides w/ his spouse in a private, 2 story home w/ 1-2 MOE. Functionally, patient is indep. w/ ADLs, mobility without the use of any assisted device. 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
Pt. has RX plan and uses [facility] on [address] in [place] for RX needs.
Reviewed pre and post op routines.
Soap, shower instructions and Cardiac Rehab booklet provided.
Reviewed post op restrictions to include lifting, driving and flying restrictions.
Discussed post op MD appointments, Cardiac Rehab and visit by CT Transitional Care RN.
Plan for CT Surgery, 09/03.
Antic. DC to home w/ CT Transitional Care RN.
CM to follow.
[2024-08-27 11:05] LABS: Glycohemoglobin (HgbA1c) 8.2 % (4.0-5.6)
--- NOTE | 2024-09-06 23:43 | W.PN.CT ---
Assessment / Plan
-
Assessment:
-S/p Median sternotomy/AVR (#27 Inspiris Resilia)/CABG x 2 (JULIETA to LAD, GSV to mid-PDA)/R EVH/ELAA (35mm AtriClip), by Dr. Sidhu, 09/07/24, pod#1
-Severe /bicuspid valve
-Severe 3v CAD
-LVEF 55% per echo 06/23/24; EF 55-60% per intraop AFTAB
-NSVT
-LAFB
-HTN
-HLD
-T2DM (hgb A1C 8.2)
-Class 1 obesity (BMI 30.1)
-Hx TIA (06/22/24, affected right side)
-Former tobacco use
-Probable NANO
-Allergic rhinitis
-GERD
-OA
-S/p R arthroscopy x 4
-S/p Appendectomy, 2013
-S/p Teeth implants/full upper and lower dentures
-Acute postop blood loss/Anemia (stable without blood transfusion)
-Acute postop atelectasis
-Acute postop hypovolemia with subsequent hypervolemia
-Acute intraop VT required 20 joules internal defibrillation with subsequent bradycardia/idioventricular rhythm S/p dobutamine gtt
Plan:
-No major issues overnight. Hemodynamically and neurologically stable
-Successfully extubated yesterday 09/07 @ 1745
-Weaned off Levophed gtt last night, remains on insulin gtt per protocol
-Last CI 3.1, U/O since OR mL
-Monitor chest tube output: 2meds , R/L pleurals. CXR this AM looks clear
-Cont. current meds (ASA, Plavix, Crestor, Amiodarone, BB if BP permits)
-D/C'd pablo and a-line @ 0430
-Will d/c christi @ 0600
-Will transition to tele phase tomorrow once off insulin gtt. Will consult diabetes education/management given hgb A1C of 8.2
-Maintain cordis
-Maintain temporary PW (will cut before d/c home)
-Encourage use of IS
-Wean off of O2 as tolerated
-OOB into chair/Ambulate
Subjective
-
Date of Service: September 06, 2024
Objective Data
-
Lab Results
08/27/24 08:42
08/27/24 08:42
PT 13.9 Sec (11.4-14.6) 08/27/24 08:42
INR 1.02 08/27/24 08:42
APTT 29.2 Sec (23.4-35.0) 08/27/24 08:42
[2024-09-07] VITALS (18 sets, daily range): BP systolic 89–160; BP diastolic 65–93; BMI 27.9
[2024-09-07] MEDS: BACTROBAN 2% OINTMENT 1 APPLIC NASAL ×2 (05:20→19:48)
[2024-09-07] MEDS: LOPRESSOR 25 MG PO (05:22)
[2024-09-07] MEDS: PROTONIX 40 MG PO (05:22)
[2024-09-07] MEDS: MAGNESIUM OXIDE 500 MG PO (05:23)
--- NOTE | 2024-09-07 05:28 | PTCARENOTE ---
Admitted patient into 2262. Patient confirmed NPO since midnight and 2 showers at home. Clipped, washed, meds, and admission completed. All questions answered. Awaiting call to [facility].
--- NOTE | 2024-09-07 06:35 | W.CVOR.SURPR ---
[facility] Surgeon Immed Pre Op
-
I have examined this patient prior to performance of the scheduled procedure.
The patient's condition is unchanged from the time of the dictated/written History and
Physical and the patient is able to undergo the scheduled procedure.
[2024-09-07 07:33] LABS: ACT+ - POC 98 Seconds (82-134)
[2024-09-07 07:34] LABS: Urine Albumin 2+ (Neg - Trace); Urine Bilirubin Negative (Negative); Urine Character Clear (Clear); Urine Color Yellow; Urine Glucose 4+ (Negative); Urine Ketone Negative (Negative); Urine Leukocyte Negative (Negative); Urine Nitrite Negative (Negative); Urine Occult Blood 4+ (Negative); Urine Urobilinogen 1+ (Neg - 1+)
[2024-09-07 07:51] LABS: Urine Squamous Cell >30 /LPF (Few)
[2024-09-07 07:52] LABS: Urine Mucus Few
[2024-09-07 07:53] LABS: Urine Bacteria Few (Negative)
[2024-09-07] MEDS: ANCEF 10 IV ×2 (08:00→12:52)
--- NOTE | 2024-09-07 09:03 | CM ---
Reviewed chart. Mr. High is in the operating room today. Prior to admission he resides with his spouse in a two story home with two steps to enter. Prior to admission he was independent with ambulation and adls. He does not have any DME in the
home. He has a prescription plan and uses [facility]. Medical work-up in progress. The discharge plan is to return home with spouse and a home visit by the Transitional Care Nurse when medically stable.
[2024-09-07 09:27] LABS: ACT+ - POC 520 Seconds (82-134)
[2024-09-07 10:03] LABS: B.E. - POC -0.5 mmol/L; Glucose - POC 204 mg/dl (70-99); HCO3 - POC 24 mmol/L (21-28); Hematocrit - POC 37 % PCV (42-52); Hemodilution- POC No; Hemoglobin Calculated - POC 12.6; O2 Saturation %Calculated-POC 99.2 % (94-98); PCO2 - POC 36 mmHg (35-48); PO2 - POC 140 mmHg (83-108); POC Comment PRE; Potassium - POC 3.7 mmol/L (3.5-5.1); Sodium - POC 139 mmol/L (136-145); Specimen Type - POC Arterial; pH - POC 7.43 (7.35-7.45)
[2024-09-07 10:13] LABS: ACT+ - POC 547 Seconds (82-134)
--- NOTE | 2024-09-07 10:14 | W.PN.CD ---
Addendum entered and electronically signed by Allan Calderon MD 09/07/24 17:17:
I saw and examined the patient.
The INVESTMENT SPECIALIST's note was reviewed and I agree with the note.
Comment: 69M hypertension, dyslipidemia, NIDDM, TIA (06/22/2024), and severe aortic stenosis with cardiac catheterization demonstrating multivessel coronary artery disease who presents for CABG/AVR
Primary Quality Assurance Engineer: Dr. Key
- now extubated and off inotropes
Original Note:
Today's Communication / Plan
-
Follow telemetry
Postoperative care per CT surgery
Impression / Plan
-
IMPRESSION/PLAN: 69M hypertension, dyslipidemia, NIDDM, TIA (06/22/2024), and severe aortic stenosis with cardiac catheterization demonstrating multivessel coronary artery disease who presents for CABG/AVR
Primary Quality Assurance Engineer: Dr. Key
Multivessel coronary artery disease/severe aortic stenosis s/p CABG/AVR by Dr. Sidhu 07/07/2025
-CABG x 2 (Elida�LAD, GSV�mid PDA) & AVR (#27 Inspiris Resilia) and ELAA (35mm atrial clip)
-Post AFTAB: EF 55-60%, mild inferior basal hypokinesis (unchanged from preop), MG 5 mmHg
-EKG sinus rhythm with prolonged QT, EKG in a.m.
-On Levophed 2, dobutamine 1
-Follow telemetry
Dyslipidemia
-Comorbidities of multivessel coronary artery disease, TIA, and type 2 diabetes
-LDL 164 during prior hospitalization, rosuvastatin 40 mg started at that time
NSVT, resume beta kaylie when able
HTN, follow in the post operative setting
LAFB, seen on prior EKG
TIA (06/2024), on single agent aspirin
NIDDM, uncontrolled, HgbA1c 8.2%
SUBJECTIVE:
Operative notes reviewed. Intubated and sedated.
Physical Exam
Vital Signs/Labs
Vital Signs
Temp Pulse Resp BP Pulse Ox
97.8 F 95 17 160/93 98
09/07/24 05:26 09/07/24 05:26 09/07/24 05:26 09/07/24 05:22 09/07/24 05:26
09/06/24 09/07/24 09/08/24
06:59 06:59 06:59
Actual Weight 80.7 kg
08/27/24 08:42
08/27/24 08:42
PT 13.9 Sec (11.4-14.6) 08/27/24 08:42
INR 1.02 08/27/24 08:42
APTT 29.2 Sec (23.4-35.0) 08/27/24 08:42
Physical Exam
Constitutional: No acute distress and Comfortable
EENT: Anicteric and Moist mucous membranes
Cardiovascular: Rhythm & rate is regular, Pedal edema is absent and S1S2 is normal
Respiratory: Lungs clear to auscul.
GI: Soft, Distention absent, Flat and Non tender
Neuro/Psych: Other (sedated)
Other: Skin (warm and dry)
Data Reviewed
-
Date of Service: September 07, 2024
EKG: Report Reviewed by me
[2024-09-07 10:42] LABS: B.E. - POC 1.4 mmol/L; Glucose - POC 186 mg/dl (70-99); HCO3 - POC 26 mmol/L (21-28); Hematocrit - POC 34 % PCV (42-52); Hemodilution- POC Yes; Hemoglobin Calculated - POC 11.7; Ionized Calcium - POC 1.03 mmol/L (1.15-1.33); O2 Saturation %Calculated-POC 99.9 % (94-98); PCO2 - POC 39 mmHg (35-48); PO2 - POC 350 mmHg (83-108); POC Comment CPB; Potassium - POC 4.5 mmol/L (3.5-5.1); Sodium - POC 137 mmol/L (136-145); Specimen Type - POC Arterial; pH - POC 7.43 (7.35-7.45)
[2024-09-07 10:52] LABS: ACT+ - POC 463 Seconds (82-134)
[2024-09-07 11:12] LABS: B.E. - POC -0.3 mmol/L; Glucose - POC 162 mg/dl (70-99); HCO3 - POC 25 mmol/L (21-28); Hematocrit - POC 31 % PCV (42-52); Hemodilution- POC Yes; Hemoglobin Calculated - POC 10.5; Ionized Calcium - POC 1.08 mmol/L (1.15-1.33); PCO2 - POC 41 mmHg (35-48); PO2 - POC 370 mmHg (83-108); POC Comment CPB; Potassium - POC 4.4 mmol/L (3.5-5.1); Sodium - POC 139 mmol/L (136-145); Specimen Type - POC Arterial; pH - POC 7.39 (7.35-7.45)
[2024-09-07 11:24] LABS: ACT+ - POC 577 Seconds (82-134)
[2024-09-07 11:50] LABS: Glucose - POC 138 mg/dl (70-99); HCO3 - POC 24 mmol/L (21-28); Hematocrit - POC 34 % PCV (42-52); Hemodilution- POC Yes; Hemoglobin Calculated - POC 11.6; Ionized Calcium - POC 1.11 mmol/L (1.15-1.33); O2 Saturation %Calculated-POC 99.9 % (94-98); PCO2 - POC 41 mmHg (35-48); PO2 - POC 334 mmHg (83-108); POC Comment CPB; Potassium - POC 3.8 mmol/L (3.5-5.1); Sodium - POC 141 mmol/L (136-145); Specimen Type - POC Arterial; pH - POC 7.38 (7.35-7.45)
[2024-09-07 12:06] LABS: ACT+ - POC 677 Seconds (82-134)
[2024-09-07 12:21] LABS: B.E. - POC -0.7 mmol/L; Glucose - POC 141 mg/dl (70-99); HCO3 - POC 25 mmol/L (21-28); Hematocrit - POC 35 % PCV (42-52); Hemodilution- POC Yes; Ionized Calcium - POC 1.11 mmol/L (1.15-1.33); O2 Saturation %Calculated-POC 99.9 % (94-98); PCO2 - POC 42 mmHg (35-48); PO2 - POC 327 mmHg (83-108); POC Comment CPB; Potassium - POC 4.1 mmol/L (3.5-5.1); Sodium - POC 142 mmol/L (136-145); Specimen Type - POC Arterial; pH - POC 7.37 (7.35-7.45)
[2024-09-07 12:30] LABS: ACT+ - POC 502 Seconds (82-134)
[2024-09-07 12:55] LABS: B.E. - POC -2.3 mmol/L; Glucose - POC 168 mg/dl (70-99); HCO3 - POC 23 mmol/L (21-28); Hematocrit - POC 32 % PCV (42-52); Hemodilution- POC Yes; Ionized Calcium - POC 1.07 mmol/L (1.15-1.33); O2 Saturation %Calculated-POC 99.9 % (94-98); PCO2 - POC 39 mmHg (35-48); PO2 - POC 330 mmHg (83-108); POC Comment REWARM; Potassium - POC 4.5 mmol/L (3.5-5.1); Sodium - POC 142 mmol/L (136-145); Specimen Type - POC Arterial; pH - POC 7.38 (7.35-7.45)
[2024-09-07 13:04] LABS: ACT+ - POC 107 Seconds (82-134)
--- NOTE | 2024-09-07 13:16 | PN.DE.MGMTRT ---
Insulin Management
- -
09/07/2024: Diabetes Management Consult
69 year old male admitted for elective CABG. PMH: Severe /?bicuspid valve, Severe 3V CAD, HTN, HLD, Class 1 obesity (BMI 30.1), Hx TIA, Former tobacco use, Probable NANO, Allergic rhinitis, GERD, OA and T2DM.
Pt is off the floor for procedure and not available for interview at this time. Information obtained from chart review.
Was taking Jardiance 25mg daily and Actos 30 mg daily. A1C 8.2%, Cr 0.9, eGFR>60 as of 08/27.
Plan to start Glycemic protocol post-operatively x48 hrs.
Will see pt tomorrow and cont to follow and assess appropriateness to transition off insulin infusion when medically stable
Diabetes History
- -
Type of Diabetes: 2
Pre-Admission Diabetes Regimen
Lab Results
Hemoglobin A1c 8.2 % (4.0-5.6) H 08/27/24 08:42
Insulin Pump Settings
IP Diabetes Regimen
Patient Education
--- NOTE | 2024-09-07 13:43 | W.IMMPOSTOP ---
Addendum entered and electronically signed by Tomy Sidhu MD 09/07/24 14:52:
[id number]
Original Note:
Surgical Immed Post Op Note
-
CARDIAC SURGERY OPERATIVE NOTE:
Preoperative Dx:
Severe aortic stenosis (P/M 121/72; DERRELL 1.0), trace AI
MVCAD
Postoperative Dx:
Same
Procedures:
1) Median sternotomy
2) Takedown of JULIETA (narrow pedicle)
3) Endoscopic harvest/prep of RLE GSV
4) CABG x 2 (JULIETA to LAD, GSV to mid-PDA)
5) AVR (#27 Inspiris Resilia)
6) ELAA (35mm AtriClip)
Surgeon:
Tomy Sidhu M.D.
Assistants:
Jesus Momin-Danae; energy assistant throughout
Pinky Coto P.A.-C.; endoscopic harvest/prep of RLE GSV; [id number] sternotomy closure
Anesthesia:
Rafael Gaytan M.D. and Aysha SharmaN.A.
Perfusion:
Elisa Marroquin C.C.P.; XC: 145min, CPB: 169min
Findings:
JULIETA was healthy appearing conduit w/ extremely brisk blood flow; ELD 2.75mm
GSV was healthy appearing conduit w/ ELD 3.5-4.0mm
LAD was visible on the epicardial surface, scattered calcifications, serpentine course, ELD 2.75mm at midpoint anastomosis
RPDA was visible on the epicardial surface, fairly dense proximal calcifications, scattered mid-calcifications, ELD 2.50mm at midpoint anastomosis
Terminal LCx branch just visible as it left the inferior/posterior AV groove; ELD 1.00mm or less at surgically accessable location, RPLB branch took a course almost immediately adjacent to this vessel; bypass not performed
Small windsock morphology of JOHN (occluded at base w/ 35mm AtriClip)
AV was profoundly calcified with Nicolette 1 morphology w/ fusion of LCC and RCC. The leaflets were bulky and immobile. Calcium extended into the annulus circumferentially and down onto the aortomitral curtain. LM and RM coronaries were in their
typical anatomic locations w/ sizable openings. The ostium of the LM was close to the annulus (10.2mm on preop CT assessment) w/ intimately related annular calcifications.
#27 Inspiris Resilia valve secured w/ 17 interrupted, pledgetted valve sutures and CorKnots. LM was not visible with valve in-situ, but probed easily w/ a large right angle clamp. RM also patient. I estimate that the yonathan of the LM coronary is
approximately 5mm cephalad to the sewing cuff of the AVR.
Post-AFTAB: Well-seated AVR, mean gradient 5mmHg, no PVL/AI, LVEF 55-60%, mild inferobasilar hypokinesis (unchanged from preop), trace MR, trace TR, JOHN excluded
Implants:
Mclaughlin Inspiris Resilia #27mm; SN [id number]
V-wires x 2
Sternal wires x 6
Sternal 'X' plate x 1 w/ 8 - 14mm screws
Sternal 'Square' plate x 2 x 8 - 12mm screws
Complications:
None
Transfusions:
None
Condition:
91 isoelectric sinus (0.1/0.0) w/ occasional PVCs; 113/61; 36/21, CVP 18; CO/CI: 4.5/2.4
GTTS: levophed 2, dobutamine 1, precedex 0.5, insulin 1
Stable/guarded to CVICU
[2024-09-07 13:52] LABS: B.E. - POC -0.3 mmol/L; Glucose - POC 153 mg/dl (70-99); HCO3 - POC 26 mmol/L (21-28); Hematocrit - POC 32 % PCV (42-52); Hemodilution- POC Yes; Hemoglobin Calculated - POC 10.8; Ionized Calcium - POC 1.39 mmol/L (1.15-1.33); O2 Saturation %Calculated-POC 79.2 % (94-98); PCO2 - POC 47 mmHg (35-48); PO2 - POC 46 mmHg (83-108); POC Comment POST; Potassium - POC 3.5 mmol/L (3.5-5.1); Sodium - POC 143 mmol/L (136-145); Specimen Type - POC Mixed-Venous; pH - POC 7.35 (7.35-7.45)
[2024-09-07 14:21] LABS: Glucose - Point of Care 163 mg/dl (70-99)
--- NOTE | 2024-09-07 14:30 | PTCARENOTE ---
Pt received from CVOR; AAOx3/Sedated and intubated; Pupils round, reactive, and equal; NSR rhythm on monitor; VSS; Epicardial pacemaker present? with pacer settings VVI 40/10; DP and radial pulses present; Lungs clear; ETT size 8 positioned and
secured at 23 cm right lip; Ventilator settings SIMV 16/500/5 FiO2 40%; CTx4 to -20 cm wall suction draining bloody drainage - no air leak, tidaling, or crepitus noted; Hypoactive BS; To catheter in place draining yellow clear urine; Sternal
Midline Incision CDI/ R Leg wrapped in Dirk wrap - CDI; Edema present in R & L hands; A-line in left artery - line zeroed and level; Dayanara present in right Cordis; PIVx1; Levo/insulin/precedex infusing; See nursing flowsheets for further details.
[2024-09-07 14:31] LABS: Hemoglobin 11.2 g/dL (13.0-18.0); Platelet Count 144 10^3/uL (130-400)
[2024-09-07 14:37] LABS: B.E. -1.5 mmol/L; HCO3 23.7 mmol/L (21-28); PCO2 41 mmHg (35-48); PO2 109 mmHg (83-108); Sodium 138 mMOL/L (136-145); pH 7.37 (7.35-7.45)
[2024-09-07 14:41] LABS: INR 1.31; Mixed Venous O2 Saturation 75.4 %; PT 16.6 Sec (11.4-14.6)
[2024-09-07 14:42] LABS: APTT 30.8 Sec (23.4-35.0)
[2024-09-07] MEDS: NEURONTIN PO ×2 (14:48→19:46)
[2024-09-07 14:49] LABS: Blood Urea Nitrogen 15 mg/dl (9-20); Estimated Creatinine Clearance 92 ml/min; Glucose 152 mg/dl (70-99); Magnesium 3.1 mg/dl (1.6-2.3)
[2024-09-07] MEDS: NSS 500 IV (14:49)
[2024-09-07] MEDS: NOVOLOG FLEXPEN SC ×2 (14:49→19:46)
[2024-09-07 15:31] LABS: Glucose - Point of Care 148 mg/dl (70-99)
--- NOTE | 2024-09-07 15:58 | CON.INTV ---
Consultation
Consultation Request
Date/Time Consultation Requested: 09/07/24
Date/Time Consultation Performed: 09/07/24
Performing Provider: Stefano
Reason for Consultation: CVICU
Medical History
-
History of Present Illness:
Patient is a 69-year-old male with previous history of hypertension, diabetes presenting for elective cardiac intervention. He has history of multivessel CAD and severe aortic stenosis. Underwent CABG x 2 with AVR. He was perioperatively
mechanically ventilated and transferred to CVICU for further postop management.
Past Medical History
Past Medical History: Other (see list below)
Social History
Tobacco: Non-smoker
Alcohol: None
Drug: None
Family History
Family History: Reviewed & Not Pertinent
Allergies / Home Medications
Allergies
Allergy/AdvReac Type Severity Reaction Status Date / Time
dulaglutide [From Trulicity] Allergy Severe Intractable Verified 08/25/24 13:48
Vomiting
oxycodone [From Percocet] Allergy Severe Vomiting Verified 08/25/24 13:48
semaglutide [From Ozempic] Allergy Severe Vomiting Verified 08/25/24 13:48
Home Medications
�Medication �Instructions �Recorded �Confirmed �Last Taken �Type
cetirizine 10 mg tablet 10 mg PO DAILY Allergies 06/22/24 09/07/24 06/22/24 History
empagliflozin 25 mg tablet 25 mg PO DAILY Heart 06/22/24 09/07/24 09/03/24 07:00 History
(Jardiance) Disease/Condition
lansoprazole 15 mg capsule,delayed 15 mg PO DAILYPRN PRN gi issues 06/22/24 09/07/24 09/06/24 07:00 History
release (Prevacid 24Hr)
lisinopril 10 mg tablet 10 mg PO DAILY Blood Pressure 06/22/24 09/07/24 09/04/24 06:00 History
pioglitazone 30 mg tablet 30 mg PO DAILY Diabetes 06/22/24 09/07/24 09/03/24 06:00 History
aspirin 81 mg tablet,delayed 81 mg PO DAILY #100 tabs 06/23/24 09/07/24 09/06/24 07:00 Rx
release
rosuvastatin 40 mg tablet 40 mg PO QPM #30 tabs 06/23/24 09/07/24 09/06/24 18:00 Rx
furosemide 20 mg tablet (Lasix) 20 mg PO DAILY #90 tabs 08/24/24 09/07/24 09/04/24 07:00 Rx
metoprolol succinate 25 mg 25 mg PO DAILY #90 tabs 08/24/24 09/07/24 09/06/24 07:00 Rx
tablet,extended release 24 hr
(Toprol XL)
acetaminophen 500 mg tablet 1,000 mg PO Q6H PRN pain 08/25/24 09/07/24 09/06/24 13:00 History
500 mg
Review of Systems
-
Unable to Obtain full review of systems at this time due to: Patient Intubation
Vitals / Labs / Diagnostic Testing
Vital Signs
Temp Pulse Resp BP Pulse Ox
97.2 F 77 16 97/76 97
09/07/24 15:00 09/07/24 15:00 09/07/24 15:00 09/07/24 15:00 09/07/24 15:00
Lab Data
09/07/24 14:21
Laboratory Results
09/07/24
14:21
PT 16.6 H
INR 1.31
APTT 30.8
pH 7.37
pCO2 41
pO2 109 H
HCO3 23.7
O2 Delivery Level Not Reportable
Diagnostic Testing:
Physical Exam
-
HEENT: Normocephalic, Anicteric and Moist Mucous Membranes
Cardiovascular: S1/S2 and Regular Rhythm
Respiratory: Clear and Non-Labored Respirations
GI: Soft, Non Distended and Non Tender
Neurology: Other (sedated/intubated)
Skin: Warm, Dry and Good Color
General: Comfortable and Other (NAD)
Assessment
-
Patient is a 69-year-old male with previous history of hypertension, diabetes presenting for elective cardiac intervention. He has history of multivessel CAD and severe aortic stenosis. Underwent CABG x 2 with AVR. He was perioperatively
mechanically ventilated and transferred to CVICU for further postop management.
Severe /MVCAD s/p CABG x 2 (JULIETA to LAD, GSV to mid-PDA) and AVR 09/07/24
Perioperative MV
Mild postop anemia
Conditions present FURNACE HAND
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
Type 2 diabetes mellitus with hyperglycemia
Essential (primary) hypertension
CAD
Severe
Allergic rhinitis
OA/knee pain-medial meniscus X3
Plan
S/p AVR/CAB x 2 POD #0
Titrate off pressors per protocol
ECHO reviewed with normal function
PA catheter readings reviewed
Management of chest tubes per primary service
Intubated/sedated, initiate SAT when able
Pain control
RASS goal of 0 to -1
Intubated for procedure, SBT trial when patient able to spontaneously breath
Current vent settings: PSV 5, 40%/5+
ABG(s) reviewed/adequate
CXR with no obvious opacities/infiltrates, low lung volumes, ETT in good position, lines/tubes in place
Extubate per protocol
Maintain supplement oxygen as needed
No prior history of pulmonary disease
Prior PFTs reviewed--normal spirometry
Can add nebulizers if needed
Aspiration precautions
Encouraged incentive spirometry, OOB/ambulation/early mobility
Advance diet as tolerated following extubation
GI prophylaxis if indicated for mechanical ventilation >48 hours
Monitor critical I/O's
To/chest tube output
Hb/platelets postoperatively stable
Trend CBC for now
Can transfuse if indicated for Hb <7, plt <50 in surgical patients
DVT prophylaxis including SCDs
Insulin protocol initiated and ongoing
Transition to SQ/off as indicated per team
We will follow
Diagnostic Data
Chest X-Ray: 09/07/24- There is an increase in pulmonary vasculature which suggests congestive heart failure. Please correlate clinically. [place]-Laure catheter appears to have its tip in the right atrium, versus main pulmonary artery. Please correlate
CT Scan: 09/02/24- Dense aortic valvular calcification is present. Coronary artery calcifications are present. Right dominant system. The lungs appear clear. There is no significant pleural effusion and no significant pericardial effusion.
Echo: AFTAB 09/07/24- Severe aortic stenosis, bicuspid valve, severely calcified leaflets and annulus. Trivial to mild AI. Annulus measures 28 mm. Mild inferobasal hypokinesia, overall normal left ventricular systolic function. Mild LVH. Stage I
diastolic function.
PFT's: Ophelia 08/27/24- FVC was 3.63L or 102%. FEV1 was 2.86L or 105%. Ratio 79
Reports and relevant images were personally reviewed.
Critical Care time 51 mins -- The patient is admitted for acute critical illness for the treatment of vital organ failure and/or prevention of further life-threatening conditions. Total care includes time spent in review of history, physical exam,
medications, hemodynamic/ventilator parameters, laboratory data, imaging and discussion with house staff, pharmacy, respiratory therapy, practice manager, and nursing.
[2024-09-07 16:20] LABS: Glucose - Point of Care 133 mg/dl (70-99)
--- NOTE | 2024-09-07 16:30 | PTCARENOTE ---
PT placed on CPap @ 1615; see worklist for detailed assessment
[2024-09-07] MEDS: ZOFRAN 4 MG IV (16:46)
[2024-09-07 17:03] LABS: Glucose - Point of Care 122 mg/dl (70-99)
[2024-09-07 17:03] LABS: B.E. -2.9 mmol/L; HCO3 22.6 mmol/L (21-28); PCO2 41 mmHg (35-48); PO2 127 mmHg (83-108); pH 7.35 (7.35-7.45)
--- NOTE | 2024-09-07 17:10 | PTCARENOTE ---
PT extubated @ 1703, and AAOx4 stated name [facility] and [facility] was his current location. see worklsit for detailed assessment
[2024-09-07] MEDS: ANCEF 5 IV (18:39)
[2024-09-07] MEDS: REGLAN 10 MG IV (18:39)
[2024-09-07 18:50] LABS: Glucose - Point of Care 137 mg/dl (70-99)
[2024-09-07 19:04] LABS: Hematocrit 33.7 % (39.0-52.0); Hemoglobin 11.5 g/dL (13.0-18.0); Platelet Count 182 10^3/uL (130-400)
[2024-09-07] MEDS: TYLENOL PO (19:46)
[2024-09-07] MEDS: PACERONE PO (19:46)
[2024-09-07] MEDS: LOW STRENGTH ASPIRIN 81 MG PO (19:47)
[2024-09-07] MEDS: SODIUM BICARBONATE 50 MEQ IV (19:48)
[2024-09-07] MEDS: CRESTOR 40 MG PO (20:14)
[2024-09-07] MEDS: FLEXERIL 5 MG PO (20:14)
[2024-09-07] MEDS: SENOKOT-S 1 TABLET PO (20:14)
[2024-09-07] MEDS: CALCIUM GLUCONATE 100 IV (20:16)
--- NOTE | 2024-09-07 20:30 | PTCARENOTE ---
Assumed care of patient from dayshift RN. Walking rounds completed. Pt AOOx3. CURRAN. Follows commands appropriately. SR to sinus tach on the monitor. HR 90-100s. Temporary epicardial v-wire set to backup rate of 40. No pacer spikes noted. BPs
100-120s/60s. CVP ~5. PAPs 20s/10s. CI>2. Palpable pulses throughout. Pt on 2 L NC. POX 95%. Lung sounds diminished B/L. Deep breathing and IS encouraged. Mediastinal CTx2 and R/L pleural to -20 suction, no airleak noted at this time, and output
WNL. Abdomen soft. Hypoactive BS. Intermittent nausea. To catheter in place and draining yellow urine. Right IJ cordis w/ swan and left radial a-line intact. All lines leveled, zeroed, and flushed. All surgical sites stable. Glycemic protocol
followed. Pt repositioned in bed. Family updated at the bedside. See worklist for full nursing assessment and interventions. Call robles within reach.
[2024-09-07 20:32] LABS: Glucose - Point of Care 109 mg/dl (70-99)
[2024-09-07] MEDS: DILAUDID 0.25 MG IV (21:24)
[2024-09-07] MEDS: NEURONTIN 100 MG PO (22:16)
[2024-09-07] MEDS: PACERONE 200 MG PO (22:16)
[2024-09-07] MEDS: TYLENOL 1000 MG PO (22:16)
[2024-09-07 23:12] LABS: Glucose - Point of Care 127 mg/dl (70-99)
[2024-09-07] MEDS: DILAUDID 0.5 MG IV (23:16)
[2024-09-08] VITALS (21 sets, daily range): BP systolic 86–116; BP diastolic 57–75; PULSE 93; O2SAT 95; BMI 28.9
--- NOTE | 2024-09-08 00:37 | PTCARENOTE ---
No acute change in assessment. Pt Sinus tach on the tele monitor. HR 100s. BP 100s-120s/50-70s. PAPs 20s/teens. CVP ~6. CI >2. [place] and a-line maintained. All lines leveled, zeroed, and flushed. Pt on 2 L NC. POX 94%. Mediastinal CTx2 and R/L
pleural CT assessment unchanged from original. Output appropriate. To catheter intact and draining yellow urine. All surgical sites stable. Intermittent nausea. Pain medication administered - see MAR. Glycemic protocol followed. Call robles within
reach.
[2024-09-08 01:16] LABS: Glucose - Point of Care 109 mg/dl (70-99)
[2024-09-08] MEDS: ULTRAM 50 MG PO ×4 (01:18→20:49)
[2024-09-08] MEDS: DILAUDID 0.25 MG IV (02:11)
[2024-09-08] MEDS: ANCEF 5 IV ×2 (02:11→11:09)
[2024-09-08 03:17] LABS: Glucose - Point of Care 113 mg/dl (70-99)
[2024-09-08 03:34] LABS: Hematocrit 33.8 % (39.0-52.0); Hemoglobin 11.4 g/dL (13.0-18.0); Mean Corp Hgb Conc. 33.7 g/dL (33.0-37.0); Mean Corpuscular Hgb 30.8 pg (27.0-31.0); Mean Corpuscular Volume 91.4 fL (80.0-94.0); Mean Platelet Volume 10.2 fL (7.4-10.4); Platelet Count 163 10^3/uL (130-400); Red Cell Dist. Width 12.9 % (11.5-14.5); White Blood Cell Count 15.6 10^3/uL (4.8-10.8)
[2024-09-08 03:58] LABS: Blood Urea Nitrogen 20 mg/dl (9-20); Calcium 8.2 mg/dl (8.4-10.2); Carbon Dioxide 25 mmol/L (22-30); Chloride 107 mmol/L (98-107); Estimated Creatinine Clearance 80 ml/min; Glucose 111 mg/dl (70-99); Magnesium 2.5 mg/dl (1.6-2.3); Potassium 4.5 mmol/L (3.5-5.1); Sodium 137 mmol/L (135-145); eGFR > 60.00
--- NOTE | 2024-09-08 04:01 | W.PN.CT ---
Today's Communication / Plan
-
Plan:
-No major issues overnight. Hemodynamically and neurologically stable
-Successfully extubated yesterday 09/07 @ 1745
-Weaned off Levophed gtt last night, remains on insulin gtt per protocol
-Last CI 3.1, U/O since OR 700mL
-Monitor chest tube output: 2meds 145/235, R/L pleurals 120/225. CXR this AM looks clear
-Noted to be tachycardic postop, required amiodarone bolus x 1 this AM, increased PO Amiodarone to 400 TID
-BP soft postop, placed AM dose of BB on hold
-Cont. current meds (ASA, Plavix, Crestor, Amiodarone, BB if BP permits)
-D/C'd swan and a-line @ 0430
-Will d/c barraza @ 0600
-Will transition to tele phase tomorrow once off insulin gtt. Will consult diabetes education/management given hgb A1C of 8.2
-Maintain cordis
-Maintain temporary PW (will cut before d/c home)
-Encourage use of IS
-Wean off of O2 as tolerated
-OOB into chair/Ambulate
Assessment / Plan
-
Assessment:
-S/p Median sternotomy/AVR (#27 Inspiris Resilia)/CABG x 2 (JULIETA to LAD, GSV to mid-PDA)/R EVH/ELAA (35mm AtriClip), by Dr. Sidhu, 09/07/24, pod#1
-Severe /bicuspid valve
-Severe 3v CAD
-LVEF 55% per echo 06/23/24; EF 55-60% per intraop AFTAB
-NSVT
-LAFB
-HTN
-HLD
-T2DM (hgb A1C 8.2)
-Class 1 obesity (BMI 30.1)
-Hx TIA (12/2/24, affected right side)
-Former tobacco use
-Probable NANO
-Allergic rhinitis
-GERD
-OA
-S/p R arthroscopy x 4
-S/p Appendectomy, 2013
-S/p Teeth implants/full upper and lower dentures
-Acute postop blood loss/Anemia (stable without blood transfusion)
-Acute postop atelectasis
-Acute postop hypovolemia with subsequent hypervolemia
-Acute intraop VT required 20 joules internal defibrillation with subsequent bradycardia/idioventricular rhythm S/p dobutamine gtt
-Acute postop tachycardia
Discussed patient care with: Cardiology, Nursing, Respiratory Therapy, Pharmacy and Care Team
Subjective
Procedure
-S/p Median sternotomy/AVR (#27 Inspiris Resilia)/CABG x 2 (JULIETA to LAD, GSV to mid-PDA)/R EVH/ELAA (35mm AtriClip), by Dr. Sidhu, 09/07/24
-
Date of Service: September 08, 2024
Pt c/o incisional pain, otherwise feels well
Objective Data
-
Lab Results
09/08/24 03:16
09/08/24 03:16
PT 16.6 Sec (11.4-14.6) H 09/07/24 14:21
INR 1.31 09/07/24 14:21
APTT 30.8 Sec (23.4-35.0) 09/07/24 14:21
Vital Signs
Vital Signs
Temp Pulse Resp BP Pulse Ox
99.8 F 105 16 91/66 94
09/08/24 03:00 09/08/24 04:00 09/08/24 04:00 09/08/24 03:00 09/08/24 04:00
CT Intake/Output/Weight
09/07/24 09/07/24 09/08/24
06:59 18:59 06:59
Intake Total 302.5 / 302.5
Output Total 490 / 1010 520 / 1010
Balance -490 / -707.5 -217.5 / -707.5
SaO2: 94 (2L)
Physical Exam
-
General: Awake, Oriented and AOx3
Cardiovascular: No Murmurs, Rub (likely friction rub from chest tubes) and No Gallop
Respiratory: Decreased Breath Sounds (at bases, otherwise feels well )
Sternum: Stable
Incision: Clean, Dry and Intact
Extremities: Other (trace edema)
Data Reviewed
-
Lab Results: Results Reviewed
Medications: Active Meds Reviewed
Chest X-Ray: Report Reviewed and Image Reviewed
ECG: Report Reviewed, Image Reviewed and Discussed w/ Cardiology
[2024-09-08] MEDS: NOVOLIN R INSULIN INFUSION 100 IV (05:00)
[2024-09-08] MEDS: TYLENOL 1000 MG PO ×3 (05:00→20:49)
[2024-09-08] MEDS: CORDARONE 103 MG IV (05:03)
[2024-09-08] MEDS: CALCIUM GLUCONATE 100 IV (05:03)
[2024-09-08 05:15] LABS: Glucose - Point of Care 108 mg/dl (70-99)
--- NOTE | 2024-09-08 05:20 | PTCARENOTE ---
Pt Sinus tach on the tele monitor. HR 100s. BP stable. Pt is 95% on 2 L NC. CTx4 assessment unchanged. Labs drawn and sent / EKG obtained. Per CTPA order to DC swan and left arterial line. Calcium gluconate & Amio bolus - see SEP. Glycemic protocol
followed. Interventions as documented in the worklist. Pt repositioned in bed. Call robles within reach.
[2024-09-08 07:06] LABS: Glucose - Point of Care 111 mg/dl (70-99)
--- NOTE | 2024-09-08 08:08 | W.PN.ANS.POP ---
Anesthesia Post Operative
- Anesthesia Post Op Note
Vital Signs Stable-See Nursing Note: Yes
Airway Patent: Yes
Adequate Pain Control: Yes
Change in Mental Status: No
Current Postoperative Nausea & Vomiting: No
Anesthesia Complications: No
General Anesthetic Recall: No
Unplanned Admission: No
Post Op Hydration Adequate: Yes
[2024-09-08] MEDS: LIDOCAINE 4% PATCH 1 PATCH TOPICAL (08:15)
[2024-09-08] MEDS: LOW STRENGTH ASPIRIN 81 MG PO (08:15)
[2024-09-08] MEDS: NEURONTIN 100 MG PO ×3 (08:15→20:49)
[2024-09-08] MEDS: PLAVIX 75 MG PO (08:15)
[2024-09-08] MEDS: ZYRTEC 10 MG PO (08:15)
[2024-09-08] MEDS: PROTONIX 40 MG PO (08:16)
[2024-09-08] MEDS: PACERONE 400 MG PO ×3 (08:16→20:49)
[2024-09-08] MEDS: FLEXERIL 5 MG PO (08:16)
[2024-09-08] MEDS: MAGNESIUM OXIDE PO ×2 (08:17→21:22)
[2024-09-08] MEDS: BACTROBAN 2% OINTMENT 1 APPLIC NASAL ×2 (08:17→20:49)
[2024-09-08] MEDS: SENOKOT-S 1 TABLET PO ×2 (08:17→20:49)
--- NOTE | 2024-09-08 08:46 | PTCARENOTE ---
Assumed care of patient from film processing shift supervisor RN. AAO x 3. Sitting up in the chair. denies complaint. SR on monitor. Epicardial wire to back up of VVI 40. No pacing noted at present. 2 L NC 94%, Using IS to 1000, independently. Chest tubes x 4 t0
-20 cm suction. No air leak or crepitus noted. Surgical sites c,d,i. Pulses palpable. Insulin drip infusing per glycemic protocol. Plan for day discussed.
[2024-09-08] MEDS: NOVOLOG FLEXPEN 2 UNITS SC (08:55)
[2024-09-08 08:57] LABS: Glucose - Point of Care 110 mg/dl (70-99)
--- NOTE | 2024-09-08 09:42 | PN.DE.MGMTRT ---
Insulin Management
- -
09/08/2024: Diabetes Management Consult Follow up
Patient admitted 09/07 for elective CABG. PMH: Severe , Severe 3V CAD, HTN, HLD, Class 1 obesity (BMI 30.1), TIA, Former tobacco use, Probable NANO, Allergic rhinitis, GERD, OA and T2DM. Prior to admission was taking Pioglitazone 30 mg daily and
Jardiance 25 mg daily. A1C 8.2%, today cr .8, eGFR > 60.
Patient is awake alert and oriented, able to discuss diabetes management.
POD 1 s/p CABG x 2. Patient is on glycemic protocol insulin infusion receiving 2.3 to 4 units of insulin per hour. Will continue insulin infusion today and assess for readiness to transition off of infusion.
Discussed with nurse.
Will follow
Diabetes History
- -
Type of Diabetes: 2
Pre-Admission Diabetes Regimen
09/07/24 09/08/24
14:21 03:16
Creatinine 0.7 0.8
Lab Results
Hemoglobin A1c 8.2 % (4.0-5.6) H 08/27/24 08:42
Insulin Pump Settings
IP Diabetes Regimen
09/07/24 09/07/24 09/07/24
14:18 14:21 15:30
Glucose 152 H
POC Glucose 163 H 148 H
09/07/24 09/07/24 09/07/24
16:18 17:02 18:48
Glucose
POC Glucose 133 H 122 H 137 H
09/07/24 09/07/24 09/08/24
20:31 23:11 01:15
Glucose
POC Glucose 109 H 127 H 109 H
09/08/24 09/08/24 09/08/24
03:16 05:14 07:05
Glucose 111 H
POC Glucose 113 H 108 H 111 H
09/08/24
08:50
Glucose
POC Glucose 110 H
Meal type: Breakfast
Meal type: Dinner
Amount consumed: 100%
Patient Education
[2024-09-08] MEDS: REGLAN 10 MG IV (09:50)
[2024-09-08 10:59] LABS: Glucose - Point of Care 97 mg/dl (70-99)
--- NOTE | 2024-09-08 12:00 | PTCARENOTE ---
Ambulated in room w/o issue, pain well managed at present. VSS. Assessment unchanged from prior.
[2024-09-08] MEDS: DILAUDID 0.5 MG IV (12:08)
--- NOTE | 2024-09-08 12:25 | CM ---
Reviewed chart. Met with and Mrs. High to review discharge plans. He states he is feeling well. He states he ambulated in the hallway today. He states prior to admission he resides with his spouse in a two story home with two steps to enter.
He states he has a full flight of steps to get to bedroom/full bathroom. He states he has a powder room on the first floor. He states he is thinking about staying on the first floor and only going up the stairs to shower. He states prior to
admission he was independent with ambulation and adls. He states he does not have any DME in the home. He states he has a prescription plan and uses [facility]. He states his spouse will be home to assist in his care if needed. He also states
his daughter and son who are supportive. We reviewed a home visit by the Transitional Care Nurse. He is agreeable to a home visit. Medical work-up in progress. The discharge plan is to return home with his spouse and a home visit by the
Transitional Care Nurse when medically stable.
--- NOTE | 2024-09-08 12:30 | PTCARENOTE ---
No void 6 hours post cath removal. Bladder scan preformed for 74 ml. Will allow for more time to void.
[2024-09-08 13:06] LABS: Glucose - Point of Care 120 mg/dl (70-99)
[2024-09-08] MEDS: NSS IV (14:33)
[2024-09-08] MEDS: NOVOLOG FLEXPEN SC ×2 (14:33→17:38)
--- NOTE | 2024-09-08 14:46 | PN.CDI ---
Addendum entered and electronically signed by Peter Delarosa PA-C 09/08/24 15:54:
Pt had intraoperative VF which was responsive to internal defibrillation
Original Note:
CDI
- -
CDI:
Physician Documentation Request
Admit Date: 09/07/24 04:[address] Surgery,
Clinical Indicators:
Patient admitted with severe aortic stenosis and MV CAD; s/p AVR/CABG x2 09/07.
09/07 Operative Report, 'He did have one episode of ventricular fibrillation that was responsive to a 20-joule internal defibrillation'
09/08 PN, 'Acute intraop VT required 20 joules internal defibrillation'
Due to potentially conflicting documentation, please clarify the intraoperative/defibrillated rhythm:
Ventricular fibrillation
Ventricular tachycardia
Other
Use of terms such as suspected, likely, concern for, or probable (associated with a specific diagnosis that is being evaluated, monitored, or treated as if it exists) are acceptable and can be coded in the inpatient setting, when documented at the
time of discharge.
Thank you,
Viji Haas RN BSN
CDI Specialist
available via tiger text
Please use your independent medical judgment in providing your response.
[2024-09-08 15:12] LABS: Glucose - Point of Care 141 mg/dl (70-99)
--- NOTE | 2024-09-08 15:26 | W.PN.INTV ---
Today's Communication / Plan
Recommendations
Doing well post extubation, stable on RA
Sitting in chair, doing IS
Transitioning off insulin protocol, likely in next 24 hours
Pain control
Chest tube management per team
Assessment
-
Patient is a 69-year-old male with previous history of hypertension, diabetes presenting for elective cardiac intervention. He has history of multivessel CAD and severe aortic stenosis. Underwent CABG x 2 with AVR. He was perioperatively
mechanically ventilated and transferred to CVICU for further postop management.
Severe /MVCAD s/p CABG x 2 (JULIETA to LAD, GSV to mid-PDA) and AVR 09/07/24
Perioperative MV
Mild postop anemia
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
Type 2 diabetes mellitus with hyperglycemia
Essential (primary) hypertension
CAD
Severe
Allergic rhinitis
OA/knee pain-medial meniscus X3
Plan
S/p AVR/CAB x 2 POD #1
Titrated off pressors
ECHO reviewed with normal function
PA catheter discontinued
Management of chest tubes per primary service
Pain control
RASS goal of 0 to -1
Intubated for procedure, extubated 09/07 and doing well
Currently on RA
ABG(s) reviewed/adequate
CXR with stable postop changes
No prior history of pulmonary disease
Prior PFTs reviewed--normal spirometry
Can add nebulizers if needed
Aspiration precautions
Encouraged incentive spirometry, OOB/ambulation/early mobility
Advance diet as tolerated following extubation
Doing well
GI prophylaxis if indicated for mechanical ventilation >48 hours
Monitor critical I/O's
To/chest tube output
Hb/platelets postoperatively stable
Trend CBC for now
Can transfuse if indicated for Hb <7, plt <50 in surgical patients
DVT prophylaxis including SCDs
Insulin protocol initiated and ongoing
Transition to SQ/off as indicated per team
Diagnostic Data
Chest X-Ray: 09/07/24- There is an increase in pulmonary vasculature which suggests congestive heart failure. Please correlate clinically. [place]-Laure catheter appears to have its tip in the right atrium, versus main pulmonary artery. Please correlate
CT Scan: 09/02/24- Dense aortic valvular calcification is present. Coronary artery calcifications are present. Right dominant system. The lungs appear clear. There is no significant pleural effusion and no significant pericardial effusion.
Echo: AFTAB 09/07/24- Severe aortic stenosis, bicuspid valve, severely calcified leaflets and annulus. Trivial to mild AI. Annulus measures 28 mm. Mild inferobasal hypokinesia, overall normal left ventricular systolic function. Mild LVH. Stage I
diastolic function.
PFT's: Paulino 08/27/24- FVC was 3.63L or 102%. FEV1 was 2.86L or 105%. Ratio 79
Reports and relevant images were personally reviewed.
Critical Care time 31 mins -- The patient is admitted for acute critical illness for the treatment of vital organ failure and/or prevention of further life-threatening conditions. Total care includes time spent in review of history, physical exam,
medications, hemodynamic/ventilator parameters, laboratory data, imaging and discussion with house staff, pharmacy, respiratory therapy, clay dry press operator, and nursing.
Subjective Dataa
Subjective Data
Date of Service:
Date of Service: September 08, 2024
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
Subjective:
No complaints, tolerated extubation
Stable on RA
No complaints, sitting in chair
Objective Data
Data Reviewed
Vital Signs / I&O / Oxygen:
Vital Signs
Temp Pulse Resp BP Pulse Ox
97.8 F 102 16 93/70 94
09/08/24 13:07 09/08/24 14:45 09/08/24 13:07 09/08/24 12:00 09/08/24 13:07
Intake and Output
09/07/24 09/08/24 09/09/24
06:59 06:59 06:59
Intake Total 379.1 / 391.4 790.6 / 790.6
Output Total 1210 / 1240 150 / 150
Balance -830.9 / -848.6 640.6 / 640.6
SaO2 94
Nasal Cannula flow liters per 2
minute
Physical Exam
General: Comfortable and Other (NAD)
HEENT: Normocephalic, Anicteric and Moist Mucous Membranes
Cardiovascular: S1-S2 and Regular Rhythm
Respiratory: Clear and Non-Labored Respirations
GI: Soft, Non Distended and Non Tender
Neurology: Awake, Alert, Oriented and No Motor Deficits
Skin: Warm, Dry and Good Color
Labs/Micro/Reports
Lab Data
09/08/24 03:16
09/08/24 03:16
Laboratory Results
09/07/24
16:42
pH 7.35
pCO2 41
pO2 127 H
HCO3 22.6
O2 Delivery Level
[2024-09-08] MEDS: CRESTOR 40 MG PO (17:08)
[2024-09-08 17:10] LABS: Glucose - Point of Care 109 mg/dl (70-99)
--- NOTE | 2024-09-08 17:34 | PTCARENOTE ---
Pt without urge to void. Bladder scan obtained for [address] FINE CHEMICALS OPERATOR. Pt encouraged to increase PO intake
[2024-09-08 18:53] LABS: Glucose - Point of Care 127 mg/dl (70-99)
--- NOTE | 2024-09-08 19:40 | PTCARENOTE ---
VS downloaded by this RN from [facility].
--- NOTE | 2024-09-08 20:00 | PTCARENOTE ---
assumed care of pt from previous RN. pt A&Ox4, resting in bed at time of assessment. SR on tele-monitor. temp epicardial v-wires insulated. CTx4 (mediastinal x2, R & L pleural) to -20cm wall suction, draining sanguineous drainage. no air leaks or
crepitus noted. POX 96-97% on 2 L NC. abd s/n, +BS. voided clear, riley colored urine. all surgical sites stable, CDI. R IJ Cordis w/ KVO. PIV intact. see worklist for complete nursing assessment, interventions, VS, and I&Os.
[2024-09-08 21:03] LABS: Glucose - Point of Care 120 mg/dl (70-99)
[2024-09-08 23:01] LABS: Glucose - Point of Care 112 mg/dl (70-99)
--- NOTE | 2024-09-08 23:56 | W.PN.CT ---
Today's Communication / Plan
-
Plan:
-No major issues overnight. Hemodynamically and neurologically stable
-On insulin gtt per protocol, will transition off today. Diabetes management following, hgb A1C 8.2
-BP has been soft postop, held BB yesterday
-Noted to be tachycardic postop. Amiodarone increased to 400 TID
-Will resume low dose Toprol XL today, switched from Lopressor. Pt on Toprol Xl 25 Daily at home
-Monitor chest tube output for possible d/c: 2meds 70/150, R/L pleurals 55/185. CXR this AM looks clear
-Cont. current meds (ASA, Plavix, Crestor, Amiodarone, BB if BP permits)
-Will transition to tele phase today once off insulin gtt.
-Maintain cordis another day
-Maintain temporary PW (will cut before d/c home)
-Encourage use of IS
-Wean off of O2 as tolerated
-OOB into chair/Ambulate
-Home in 1-2 days
Assessment / Plan
-
Assessment:
-S/p Median sternotomy/AVR (#27 Inspiris Resilia)/CABG x 2 (JULIETA to LAD, GSV to mid-PDA)/R EVH/ELAA (35mm AtriClip), by Dr. Sidhu, 09/07/24, pod#2
-Severe /bicuspid valve
-Severe 3v CAD
-LVEF 55% per echo 06/23/24; EF 55-60% per intraop AFTAB
-NSVT
-LAFB
-HTN
-HLD
-T2DM (hgb A1C 8.2)
-Class 1 obesity (BMI 30.1)
-Hx TIA (06/22/24, affected right side)
-Former tobacco use
-Probable NANO
-Allergic rhinitis
-GERD
-OA
-S/p R arthroscopy x 4
-S/p Appendectomy, 2014
-S/p Teeth implants/full upper and lower dentures
-Acute postop blood loss/Anemia (stable without blood transfusion)
-Acute postop atelectasis
-Acute postop hypovolemia with subsequent hypervolemia
-Acute intraop VT required 20 joules internal defibrillation with subsequent bradycardia/idioventricular rhythm in the 20's S/p dobutamine gtt
-Acute postop tachycardia
Discussed patient care with: Cardiology, Nursing, Respiratory Therapy, Pharmacy and Care Team
Subjective
Procedure
-S/p Median sternotomy/AVR (#27 Inspiris Resilia)/CABG x 2 (JULIETA to LAD, GSV to mid-PDA)/R EVH/ELAA (35mm AtriClip), by Dr. Sidhu, 09/07/24
-
Date of Service: September 08, 2024
Pt c/o incisional pain, otherwise feels well
Objective Data
-
Lab Results
09/08/24 03:16
09/08/24 03:16
PT 16.6 Sec (11.4-14.6) H 09/07/24 14:21
INR 1.31 09/07/24 14:21
APTT 30.8 Sec (23.4-35.0) 09/07/24 14:21
Vital Signs
Vital Signs
Temp Pulse Resp BP Pulse Ox
98.9 F 96 16 109/72 96
09/08/24 20:00 09/08/24 23:00 09/08/24 20:00 09/08/24 22:00 09/08/24 23:00
CT Intake/Output/Weight
09/08/24 09/08/24 09/09/24
06:59 18:59 06:59
Intake Total 379.1 / 391.4 1186.6 / 1236.1 49.5 / 1236.1
Output Total 720 / 1240 210 / 465 255 / 465
Balance -340.9 / -848.6 976.6 / 771.1 -205.5 / 771.1
SaO2: 96 (2L)
Physical Exam
-
General: Awake, Oriented and AOx3
Cardiovascular: Regular rate & rhythm, No Murmurs, No Rub and No Gallop
Respiratory: Decreased Breath Sounds (at bases, otherwise clear)
Sternum: Stable
Incision: Clean, Dry, Intact and Dressing Intact
Extremities: Other (+trace edema)
Data Reviewed
-
Lab Results: Results Reviewed
Medications: Active Meds Reviewed
Chest X-Ray: Report Reviewed and Image Reviewed
ECG: Report Reviewed and Image Reviewed
[2024-09-09] VITALS (18 sets, daily range): BP systolic 92–121; BP diastolic 64–77; PULSE 100; O2SAT 95–96; BMI 29.3
[2024-09-09] MEDS: DILAUDID 0.5 MG IV (00:07)
--- NOTE | 2024-09-09 00:15 | PTCARENOTE ---
assessment remains unchanged. VSS. NSR on tele-monitor. POX 95-96% on 2 L NC. c/o pain- see SEP.
[2024-09-09 01:00] LABS: Glucose - Point of Care 79 mg/dl (70-99)
--- NOTE | 2024-09-09 02:53 | DOWNTIME ---
There was a [employer] Client Compressor Operator Portable Downtime on 09/09/2024 from 0100 to 09/09/2023 at 0235 . Downtime documentation of patient's care, including medication administrations, has been reconciled in the electronic record per guidelines. Refer to the
patient's paper chart under the miscellaneous tab to see printed paper medication records and downtime forms.
[2024-09-09 03:16] LABS: Glucose - Point of Care 106 mg/dl (70-99)
[2024-09-09 03:46] LABS: Ionized Calcium 1.18 mMOL/L (1.15-1.33)
[2024-09-09 03:52] LABS: Mean Corp Hgb Conc. 33.3 g/dL (33.0-37.0); Mean Corpuscular Hgb 31.4 pg (27.0-31.0); Mean Corpuscular Volume 94.3 fL (80.0-94.0); Mean Platelet Volume 9.9 fL (7.4-10.4); Platelet Count 116 10^3/uL (130-400); Red Blood Cell Count 3.18 10^6/uL (4.70-6.10); Red Cell Dist. Width 13.2 % (11.5-14.5); White Blood Cell Count 14.1 10^3/uL (4.8-10.8)
--- NOTE | 2024-09-09 04:00 | PTCARENOTE ---
no acute changes. VSS. CT drainage WNL.
[2024-09-09 04:01] LABS: Blood Urea Nitrogen 23 mg/dl (9-20); Carbon Dioxide 27 mmol/L (22-30); Chloride 102 mmol/L (98-107); Estimated Creatinine Clearance 80 ml/min; Glucose 103 mg/dl (70-99); Magnesium 2.1 mg/dl (1.6-2.3); Potassium 4.8 mmol/L (3.5-5.1); Sodium 133 mmol/L (135-145); eGFR > 60.00
[2024-09-09 04:16] LABS: Glucose - Point of Care 99 mg/dl (70-99)
[2024-09-09] MEDS: CORDARONE 103 MG IV (05:03)
[2024-09-09] MEDS: CALCIUM GLUCONATE 290 MG IV (05:03)
[2024-09-09 05:11] LABS: Glucose - Point of Care 107 mg/dl (70-99)
[2024-09-09] MEDS: ULTRAM 50 MG PO ×3 (05:24→18:32)
[2024-09-09] MEDS: TYLENOL 1000 MG PO ×3 (05:24→20:27)
--- NOTE | 2024-09-09 06:02 | W.PN.CT ---
Today's Communication / Plan
-
Plan:
-No major issues overnight. Hemodynamically and neurologically stable
-On insulin gtt per protocol, will transition off today. Diabetes management following, hgb A1C 8.2
-BP has been soft postop, held BB yesterday
-Noted to be tachycardic postop. Amiodarone increased to 400 TID
-Will resume low dose Toprol XL today, switched from Lopressor. Pt on Toprol Xl 25 Daily at home
-Monitor chest tube output for possible d/c: 2meds 70/150, R/L pleurals 55/185. CXR this AM looks clear
-Cont. current meds (ASA, Plavix, Crestor, Amiodarone, BB if BP permits)
-Will transition to tele phase today once off insulin gtt.
-Maintain cordis another day
-Maintain temporary PW (will cut before d/c home)
-Encourage use of IS
-Wean off of O2 as tolerated
-OOB into chair/Ambulate
-Home in 1-2 days
Assessment / Plan
-
Assessment:
-S/p Median sternotomy/AVR (#27 Inspiris Resilia)/CABG x 2 (JULIETA to LAD, GSV to mid-PDA)/R EVH/ELAA (35mm AtriClip), by Dr. Sidhu, 09/07/24, pod#2
-Severe /bicuspid valve
-Severe 3v CAD
-LVEF 55% per echo 06/23/24; EF 55-60% per intraop AFTAB
-NSVT
-LAFB
-HTN
-HLD
-T2DM (hgb A1C 8.2)
-Class 1 obesity (BMI 30.1)
-Hx TIA (06/22/24, affected right side)
-Former tobacco use
-Probable NANO
-Allergic rhinitis
-GERD
-OA
-S/p R arthroscopy x 4
-S/p Appendectomy, 2014
-S/p Teeth implants/full upper and lower dentures
-Acute postop blood loss/Anemia (stable without blood transfusion)
-Acute postop atelectasis
-Acute postop hypovolemia with subsequent hypervolemia
-Acute intraop VT required 20 joules internal defibrillation with subsequent bradycardia/idioventricular rhythm in the 20's S/p dobutamine gtt
-Acute postop tachycardia
-Acute postop hyponatremia, 133
Discussed patient care with: Cardiology, Nursing, Respiratory Therapy, Pharmacy and Care Team
Subjective
Procedure
-S/p Median sternotomy/AVR (#27 Inspiris Resilia)/CABG x 2 (JULIETA to LAD, GSV to mid-PDA)/R EVH/ELAA (35mm AtriClip), by Dr. Sidhu, 09/07/24
-
Date of Service: September 09, 2024
Pt c/o incisional pain, otherwise feels well
Objective Data
-
Lab Results
09/09/24 03:13
09/09/24 03:13
PT 16.6 Sec (11.4-14.6) H 09/07/24 14:21
INR 1.31 09/07/24 14:21
APTT 30.8 Sec (23.4-35.0) 09/07/24 14:21
Vital Signs
Vital Signs
Temp Pulse Resp BP Pulse Ox
98.5 F 92 16 100/66 96
09/09/24 04:00 09/09/24 05:00 09/09/24 04:00 09/09/24 05:00 09/09/24 05:00
CT Intake/Output/Weight
09/08/24 09/08/24 09/09/24
06:59 18:59 06:59
Intake Total 379.1 / 391.4 1186.6 / 1301.4 114.8 / 1301.4
Output Total 720 / 1240 210 / 625 415 / 625
Balance -340.9 / -848.6 976.6 / 676.4 -300.2 / 676.4
SaO2: 96 (2L)
Physical Exam
-
General: Awake, Oriented and AOx3
Cardiovascular: Regular rate & rhythm, No Murmurs, No Rub and No Gallop
Respiratory: Decreased Breath Sounds (at bases, otherwise clear)
Sternum: Stable
Incision: Clean, Dry, Intact and Dressing Intact
Extremities: Other (+trace edema)
Data Reviewed
-
Lab Results: Results Reviewed
Medications: Active Meds Reviewed
Chest X-Ray: Report Reviewed and Image Reviewed
ECG: Report Reviewed and Image Reviewed
[2024-09-09 07:03] LABS: Glucose - Point of Care 122 mg/dl (70-99)
[2024-09-09 07:50] LABS: Glucose - Point of Care 91 mg/dl (70-99)
--- NOTE | 2024-09-09 07:58 | PN.DE.MGMTRT ---
Insulin Management
- -
09/09/2024: Diabetes Management Consult Follow up
Patient admitted 09/07 for elective CABG. PMH: Severe , Severe 3V CAD, HTN, HLD, Class 1 obesity (BMI 30.1), TIA, Former tobacco use, Probable NANO, Allergic rhinitis, GERD, OA and T2DM. Prior to admission was taking Pioglitazone 30 mg daily and
Jardiance 25 mg daily. A1C 8.2%, today cr .8, eGFR > 60.
Patient is awake alert and oriented, able to discuss diabetes management. States his primary doctor, Saurav, manages his diabetes. Discussed Actos and implications for heart failure, he is in agreement to stop. He has a Dex Com G6 at home and
will resume when he is home
POD 2 s/p CABG x 2. Patient is on glycemic protocol insulin infusion receiving 2.3 to 4 units of insulin per hour. Will continue insulin infusion today until after lunch then discontinue. Will resume Jardiance today and start Januvia 100 mg daily
with moderate corrective insulin to start with dinner if needed.
Discussed with nurse.
Will follow
Diabetes History
- -
Type of Diabetes: 2
Pre-Admission Diabetes Regimen
09/09/24
03:13
Creatinine 0.8
Lab Results
Hemoglobin A1c 8.2 % (4.0-5.6) H 08/27/24 08:42
Insulin Pump Settings
IP Diabetes Regimen
09/08/24 09/08/24 09/08/24
08:50 10:55 13:05
Glucose
POC Glucose 110 H 97 120 H
09/08/24 09/08/24 09/08/24
15:11 17:06 18:52
Glucose
POC Glucose 141 H 109 H 127 H
09/08/24 09/08/24 09/09/24
20:55 22:59 00:57
Glucose
POC Glucose 120 H 112 H 79
09/09/24 09/09/24 09/09/24
02:04 03:13 04:12
Glucose 103 H
POC Glucose 91 106 H 99
09/09/24 09/09/24
05:09 07:02
Glucose
POC Glucose 107 H 122 H
Meal type: Breakfast
Amount consumed: 100%
Patient Education
[2024-09-09] MEDS: NOVOLOG FLEXPEN SC ×2 (08:36→13:11)
[2024-09-09] MEDS: PLAVIX 75 MG PO (08:36)
[2024-09-09] MEDS: TOPROL XL 12.5 MG PO (08:37)
[2024-09-09] MEDS: FARXIGA 10 MG PO (08:37)
[2024-09-09] MEDS: LOW STRENGTH ASPIRIN 81 MG PO (08:37)
[2024-09-09] MEDS: ZYRTEC PO ×2 (08:37→09:14)
[2024-09-09] MEDS: NEURONTIN 100 MG PO ×3 (08:37→20:27)
[2024-09-09] MEDS: PACERONE 400 MG PO ×3 (08:37→20:30)
[2024-09-09] MEDS: PROTONIX 40 MG PO (08:37)
[2024-09-09] MEDS: MAGNESIUM OXIDE 500 MG PO ×2 (08:37→20:24)
[2024-09-09] MEDS: SENOKOT-S 1 TABLET PO ×2 (08:37→20:24)
[2024-09-09] MEDS: BACTROBAN 2% OINTMENT 1 APPLIC NASAL ×2 (08:38→20:24)
[2024-09-09] MEDS: LIDOCAINE 4% PATCH 1 PATCH TOPICAL (09:05)
[2024-09-09] MEDS: FLEXERIL 5 MG PO (09:05)
--- NOTE | 2024-09-09 09:15 | PTCARENOTE ---
Assumed care of patient at 0700. Pt is awake, alert, and oriented. Pt with complaints of pain, PRN Flexeril administered per order. Pt SR/ST with HR 90's - 107. BP 109/77 MAP 88. Epicardial V wire in place, insulated. Pacer box not connected but
turned on set to VVI 40/20/2. Pulse oximetry 98% on room air. Encouraged pt to utilize IS. Mediastinal chest tubes x 2 and left/right pleural chest tubes in place to -20 suction, no sign of air leak, drainage serosanguineous. Pt tolerating PO diet.
Remains on insulin gtt at this time. Voiding without issue in urinal. Midsternal incision with post-op dressing in place. Right leg incision approximated and JERI, right groin puncture intact. Right IJ cordis in place with KVO. Pt currently OOB in
chair with call robles within reach.
[2024-09-09 09:18] LABS: Glucose - Point of Care 152 mg/dl (70-99)
--- NOTE | 2024-09-09 09:47 | CM ---
Reviewed chart. Met with Mr. High to review discharge plans. He states he is feeling well. We reviewed a home visit by the Transitional Care Nurse. He is agreeable to a home visit. Prior to admission he resided with his spouse in a two story
home with two steps to enter. He has a full flight of steps to get to bedroom/full bathroom. He has a powder room on the first floor. He is thinking about staying on the first floor and only going upstairs to shower. Prior to admission he was
independent with ambulation and adls. He does not have any DME in the home. He has a prescription plan and uses [facility]. His spouse will be home to assist in his care. He also has supportive children who reside in the area. Medical work-up
in progress. The discharge plan is to return home with his spouse and a home visit by the Transitional Care Nurse when medically stable.
[2024-09-09 11:13] LABS: Glucose - Point of Care 127 mg/dl (70-99)
[2024-09-09] MEDS: JANUVIA 100 MG PO (11:16)
--- NOTE | 2024-09-09 12:13 | PTCARENOTE ---
Pt ambulated in [place] with cardiac rehab, tolerated well. Chest tubes x4 d/c'd. Pt remains SR with HR 80's. BP 102/68 MAP 79. Pulse oximetry 95% on room air. Pt with complaints of midsternal pain, PRN Ultram administered for relief. Pt remains on
insulin gtt at this time.
[2024-09-09 13:11] LABS: Glucose - Point of Care 116 mg/dl (70-99)
--- NOTE | 2024-09-09 13:42 | W.PN.INTV ---
Today's Communication / Plan
Recommendations
Doing well, transitioning off insulin gtt
Chest tubes are to be discontinued today
Encouraged OOB/PT, pain control
Transfer to tele, we will sign off upon transfer
Assessment
-
Patient is a 69-year-old male with previous history of hypertension, diabetes presenting for elective cardiac intervention. He has history of multivessel CAD and severe aortic stenosis. Underwent CABG x 2 with AVR. He was perioperatively
mechanically ventilated and transferred to CVICU for further postop management.
Severe /MVCAD s/p CABG x 2 (JULIETA to LAD, GSV to mid-PDA) and AVR 09/07/24
Perioperative MV
Mild postop anemia
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
Type 2 diabetes mellitus with hyperglycemia
Essential (primary) hypertension
CAD
Severe
Allergic rhinitis
OA/knee pain-medial meniscus X3
Plan
S/p AVR/CAB x 2 POD #2
Titrated off pressors
ECHO reviewed with normal function
PA catheter discontinued
Management of chest tubes per primary service--discontinue today
Pain control
RASS goal of 0 to -1
Intubated for procedure, extubated 09/07 and doing well
Currently on RA
ABG(s) reviewed/adequate
CXR with stable postop changes
No prior history of pulmonary disease
Prior PFTs reviewed--normal spirometry
Can add nebulizers if needed
Aspiration precautions
Encouraged incentive spirometry, OOB/ambulation/early mobility
Advance diet as tolerated following extubation
Doing well
GI prophylaxis if indicated for mechanical ventilation >48 hours
Monitor critical I/O's
To/chest tube output
Hb/platelets postoperatively stable
Trend CBC for now
Can transfuse if indicated for Hb <7, plt <50 in surgical patients
DVT prophylaxis including SCDs
Insulin protocol initiated and transitioning to off
Accuchecks, SS per team
Diagnostic Data
Chest X-Ray: 09/07/24- There is an increase in pulmonary vasculature which suggests congestive heart failure. Please correlate clinically. Conyngham-Laure catheter appears to have its tip in the right atrium, versus main pulmonary artery. Please correlate
CT Scan: 09/02/24- Dense aortic valvular calcification is present. Coronary artery calcifications are present. Right dominant system. The lungs appear clear. There is no significant pleural effusion and no significant pericardial effusion.
Echo: AFTAB 09/07/24- Severe aortic stenosis, bicuspid valve, severely calcified leaflets and annulus. Trivial to mild AI. Annulus measures 28 mm. Mild inferobasal hypokinesia, overall normal left ventricular systolic function. Mild LVH. Stage I
diastolic function.
PFT's: Leslie 08/27/24- FVC was 3.63L or 102%. FEV1 was 2.86L or 105%. Ratio 79
Reports and relevant images were personally reviewed.
Critical Care time 31 mins -- The patient is admitted for acute critical illness for the treatment of vital organ failure and/or prevention of further life-threatening conditions. Total care includes time spent in review of history, physical exam,
medications, hemodynamic/ventilator parameters, laboratory data, imaging and discussion with house staff, pharmacy, respiratory therapy, black mill operator, and nursing.
Subjective Dataa
Subjective Data
Date of Service:
Date of Service: September 09, 2024
Chief Complaint: Field Spec Follow Up
Subjective:
Doing well, no further events ON
Stable on RA, denies pain
Ambulating well
Objective Data
Data Reviewed
Vital Signs / I&O / Oxygen:
Vital Signs
Temp Pulse Resp BP Pulse Ox
97.7 F 88 18 102/68 95
09/09/24 11:15 09/09/24 11:15 09/09/24 11:15 09/09/24 11:00 09/09/24 11:15
Intake and Output
09/08/24 09/09/24 09/10/24
06:59 06:59 06:59
Intake Total 379.1 / 391.4 1312.4 / 1322.4 55.3 / 55.3
Output Total 1210 / 1240 750 / 765 75 / 75
Balance -830.9 / -848.6 562.4 / 557.4 -19.7 / -19.7
SaO2 95
Nasal Cannula flow liters per 2
minute
Physical Exam
General: Comfortable and Other (NAD)
HEENT: Normocephalic, Anicteric and Moist Mucous Membranes
Cardiovascular: S1-S2 and Regular Rhythm
Respiratory: Clear and Non-Labored Respirations
GI: Soft, Non Distended and Non Tender
Neurology: Awake, Alert, Oriented and No Motor Deficits
Skin: Warm, Dry and Good Color
Labs/Micro/Reports
Lab Data
09/09/24 03:13
09/09/24 03:13
[2024-09-09] MEDS: NSS 500 IV (13:49)
[2024-09-09] MEDS: LASIX 40 MG IV (13:49)
[2024-09-09 15:08] LABS: Glucose - Point of Care 139 mg/dl (70-99)
--- NOTE | 2024-09-09 15:32 | PTCARENOTE ---
Pt ambulated in hallway with RN assistance. Pt remains SR with HR 80's-90's. BP 100/67 MAP 77. Pulse oximetry 96% on room air. Insulin gtt off per order.
--- NOTE | 2024-09-09 16:49 | W.PN.CD ---
Today's Communication / Plan
-
feeling better today
monitor on telemetry
continue to assess BP and HR on BB
Impression / Plan
-
IMPRESSION/PLAN: 69M hypertension, dyslipidemia, NIDDM, TIA (06/22/2024), and severe aortic stenosis with cardiac catheterization demonstrating multivessel coronary artery disease who presents for CABG/AVR
Primary Whizzer Hand: Dr. Key
Multivessel coronary artery disease/severe aortic stenosis s/p CABG/AVR by Dr. Sidhu 07/07/2025
-CABG x 2 (Elida�LAD, GSV�mid PDA) & AVR (#27 Inspiris Resilia) and ELAA (35mm atrial clip)
-Post AFTAB: EF 55-60%, mild inferior basal hypokinesis (unchanged from preop), MG 5 mmHg
-EKG sinus rhythm with prolonged QT, EKG in a.m.
-On Levophed 2, dobutamine 1
-Follow telemetry
Dyslipidemia
rosuvastatin
NSVT, resumed beta kaylie
HTN, follow in the post operative setting
LAFB, seen on prior EKG
TIA (06/2024), on single agent aspirin
NIDDM, uncontrolled, HgbA1c 8.2%
SUBJECTIVE:
chest tubesout and feeling better. felt well with ambulation
Physical Exam
Vital Signs/Labs
Vital Signs
Temp Pulse Resp BP Pulse Ox
98 F 89 18 100/67 96
09/09/24 15:31 09/09/24 16:00 09/09/24 15:31 09/09/24 15:04 09/09/24 15:31
09/08/24 09/09/24 09/10/24
06:59 06:59 06:59
Actual Weight 83.5 kg 84.9 kg
09/09/24 03:13
09/09/24 03:13
PT 16.6 Sec (11.4-14.6) H 09/07/24 14:21
INR 1.31 09/07/24 14:21
APTT 30.8 Sec (23.4-35.0) 09/07/24 14:21
Magnesium 2.1 mg/dl (1.6-2.3) 09/09/24 03:13
Physical Exam
Cardiovascular: Rhythm & rate is regular
Respiratory: Respiratory effort normal
GI: Soft
Neuro/Psych: Alert
Data Reviewed
-
Date of Service: September 09, 2024
Medical Decision Making: Reviewed Test Results
X-Ray/CT/US/MRI/NUC/PET: Report Reviewed by me
Labs: Labs Reviewed by me
[2024-09-09 17:15] LABS: Glucose - Point of Care 183 mg/dl (70-99)
[2024-09-09] MEDS: NOVOLOG FLEXPEN-MODERATE RESISTANCE 1 UNITS SC (17:16)
[2024-09-09] MEDS: CRESTOR 40 MG PO (17:22)
--- NOTE | 2024-09-09 20:00 | PTCARENOTE ---
assumed care of pt from previous RN. pt A&Ox4, resting in bed at time of assessment. SR on tele-monitor. POX 94% on RA. abd s/n, +BS. voiding clear, yellow urine in urinal. all surgical sites stable, CDI. R IJ Cordis w/ KVO. PIV intact. see worklist
for complete nursing assessment, interventions, VS, and I&Os.
[2024-09-09 20:27] LABS: Glucose - Point of Care 185 mg/dl (70-99)
[2024-09-09] MEDS: TOPROL XL PO (20:27)
[2024-09-10] VITALS (11 sets, daily range): BP systolic 87–125; BP diastolic 61–79; PULSE 92; O2SAT 95–96; BMI 28.9
--- NOTE | 2024-09-10 00:13 | PTCARENOTE ---
assessment remains unchanged. VSS.
--- NOTE | 2024-09-10 04:18 | PTCARENOTE ---
no acute changes. VSS. AM labs collected and sent.
--- NOTE | 2024-09-10 04:34 | W.PN.CT ---
Today's Communication / Plan
-
-No major issues overnight. Hemodynamically stable
-BP has been soft but stable postop
-Cont. current meds (ASA, Plavix, Crestor, Amiodarone, BB)
-D/C cordis
-Maintain temporary PW (will cut before d/c home)
-Encourage use of IS
-Wean off of O2 as tolerated
-OOB into chair/Ambulate
-Discharge planning
Assessment / Plan
-
Assessment:
-S/p Median sternotomy/AVR (#27 Inspiris Resilia)/CABG x 2 (JULIETA to LAD, GSV to mid-PDA)/R EVH/ELAA (35mm AtriClip), by Dr. Sidhu, 09/07/24, pod#3
-Severe /bicuspid valve
-Severe 3v CAD
-LVEF 55% per echo 06/23/24; EF 55-60% per intraop AFTAB
-NSVT
-LAFB
-HTN
-HLD
-T2DM (hgb A1C 8.2)
-Class 1 obesity (BMI 30.1)
-Hx TIA (06/22/24, affected right side)
-Former tobacco use
-Probable NANO
-Allergic rhinitis
-GERD
-OA
-S/p R arthroscopy x 4
-S/p Appendectomy, 2014
-S/p Teeth implants/full upper and lower dentures
-Acute postop blood loss/Anemia (stable without blood transfusion)
-Acute postop atelectasis
-Acute postop hypovolemia with subsequent hypervolemia
-Acute intraop VT required 20 joules internal defibrillation with subsequent bradycardia/idioventricular rhythm in the 20's S/p dobutamine gtt
-Acute postop tachycardia
-Acute postop hyponatremia, 133
Subjective
Procedure
-S/p Median sternotomy/AVR (#27 Inspiris Resilia)/CABG x 2 (JULIETA to LAD, GSV to mid-PDA)/R EVH/ELAA (35mm AtriClip), by Dr. Sidhu, 09/07/24
-
Date of Service: September 10, 2024
Objective Data
-
Lab Results
09/10/24 04:13
09/10/24 04:13
PT 16.6 Sec (11.4-14.6) H 09/07/24 14:21
INR 1.31 09/07/24 14:21
APTT 30.8 Sec (23.4-35.0) 09/07/24 14:21
Vital Signs
Vital Signs
Temp Pulse Resp BP Pulse Ox
98.7 F 86 16 101/65 94
09/10/24 04:17 09/10/24 04:09 09/10/24 04:17 09/10/24 04:09 09/10/24 04:17
CT Intake/Output/Weight
09/09/24 09/09/24 09/10/24
06:59 18:59 06:59
Intake Total 125.8 / 1322.4 128.9 / 228.9 100 / 228.9
Output Total 540 / 765 1150 / 2250 1100 / 2250
Balance -414.2 / 557.4 -1021.1 / -2020.1 -1000 / -2020.1
SaO2: 94
Physical Exam
-
General: AOx3
Cardiovascular: Regular rate & rhythm
Respiratory: Clear
Sternum: Stable
Incision: Dressing Intact
[2024-09-10 04:45] LABS: Hematocrit 28.2 % (39.0-52.0); Hemoglobin 9.4 g/dL (13.0-18.0); Mean Corp Hgb Conc. 33.3 g/dL (33.0-37.0); Mean Corpuscular Hgb 31.3 pg (27.0-31.0); Mean Platelet Volume 10.6 fL (7.4-10.4); Platelet Count 113 10^3/uL (130-400); Red Cell Dist. Width 12.9 % (11.5-14.5); White Blood Cell Count 11.1 10^3/uL (4.8-10.8)
[2024-09-10 05:03] LABS: Blood Urea Nitrogen 24 mg/dl (9-20); Calcium 8.1 mg/dl (8.4-10.2); Carbon Dioxide 27 mmol/L (22-30); Chloride 99 mmol/L (98-107); Estimated Creatinine Clearance 71 ml/min; Glucose 130 mg/dl (70-99); Magnesium 2.2 mg/dl (1.6-2.3); Potassium 4.3 mmol/L (3.5-5.1); Sodium 133 mmol/L (135-145); eGFR > 60.00
[2024-09-10] MEDS: TYLENOL 1000 MG PO ×2 (06:31→21:53)
[2024-09-10] MEDS: LASIX 40 MG IV (08:42)
[2024-09-10] MEDS: NEURONTIN 100 MG PO ×3 (08:43→21:54)
[2024-09-10] MEDS: PLAVIX 75 MG PO (08:43)
[2024-09-10] MEDS: PROTONIX 40 MG PO (08:43)
[2024-09-10] MEDS: PACERONE 400 MG PO ×3 (08:43→21:54)
[2024-09-10] MEDS: ZYRTEC 10 MG PO (08:43)
[2024-09-10] MEDS: FARXIGA 10 MG PO (08:43)
[2024-09-10] MEDS: TOPROL XL 12.5 MG PO ×2 (08:43→19:51)
[2024-09-10] MEDS: MAGNESIUM OXIDE 500 MG PO ×2 (08:43→19:51)
[2024-09-10] MEDS: JANUVIA 100 MG PO (08:43)
[2024-09-10] MEDS: SENOKOT-S 1 TABLET PO (08:43)
[2024-09-10] MEDS: LOW STRENGTH ASPIRIN 81 MG PO (08:43)
[2024-09-10] MEDS: NSS IV (08:44)
[2024-09-10] MEDS: BACTROBAN 2% OINTMENT 1 APPLIC NASAL ×2 (08:44→19:51)
--- NOTE | 2024-09-10 08:50 | W.PN.CD ---
Today's Communication / Plan
-
Continues feeling well
OOB and ambulate
Possible d/c tomorrow
Impression / Plan
-
IMPRESSION/PLAN: 69M hypertension, dyslipidemia, NIDDM, TIA (06/22/2024), and severe aortic stenosis with cardiac catheterization demonstrating multivessel coronary artery disease who presents for CABG/AVR
Primary Rn Progressive Care: Dr. Key
Multivessel coronary artery disease/severe aortic stenosis s/p CABG/AVR by Dr. Sidhu 07/07/2025
-CABG x 2 (Elida�LAD, GSV�mid PDA) & AVR (#27 Inspiris Resilia) and ELAA (35mm atrial clip)
-Post AFTAB: EF 55-60%, mild inferior basal hypokinesis (unchanged from preop), MG 5 mmHg
-EKG sinus rhythm with prolonged QT, EKG in a.m.
-Off pressor support, doing well
-Follow telemetry
Dyslipidemia
rosuvastatin
NSVT, resumed beta kaylie
HTN, follow in the post operative setting
LAFB, seen on prior EKG
TIA (06/2024), on single agent aspirin
NIDDM, uncontrolled, HgbA1c 8.2%
SUBJECTIVE:
Feels well, little weak but improving, possible d/c tomorrow
Physical Exam
Vital Signs/Labs
Vital Signs
Temp Pulse Resp BP Pulse Ox
98.7 F 92 16 116/67 94
09/10/24 04:17 09/10/24 08:43 09/10/24 04:17 09/10/24 08:43 09/10/24 04:36
09/09/24 09/10/24 09/11/24
06:59 06:59 06:59
Actual Weight 187 lb 2.759 oz 184 lb 1.376 oz
09/10/24 04:13
09/10/24 04:13
PT 16.6 Sec (11.4-14.6) H 09/07/24 14:21
INR 1.31 09/07/24 14:21
APTT 30.8 Sec (23.4-35.0) 09/07/24 14:21
Magnesium 2.2 mg/dl (1.6-2.3) 09/10/24 04:13
Physical Exam
Constitutional: No acute distress and Comfortable
EENT: Anicteric
Cardiovascular: Rhythm & rate is regular and Pedal edema is absent
Respiratory: Respiratory effort normal and Lungs clear to auscul.
GI: Soft
Neuro/Psych: Alert and Oriented
Data Reviewed
-
Date of Service: September 10, 2024
EKG: Tracing Personally Visualized and interpreted (sr)
Echo: Report Reviewed by me
Labs: Labs Reviewed by me
[2024-09-10 08:55] LABS: Glucose - Point of Care 160 mg/dl (70-99)
[2024-09-10] MEDS: NOVOLOG FLEXPEN-MODERATE RESISTANCE 1 UNITS SC ×2 (08:55→13:45)
--- NOTE | 2024-09-10 09:20 | PN.DE.MGMTRT ---
Insulin Management
- -
09/10/2024: Diabetes Management Consult Follow up
Patient admitted 09/07 for elective CABG. PMH: Severe , Severe 3V CAD, HTN, HLD, Class 1 obesity (BMI 30.1), TIA, Former tobacco use, Probable NANO, Allergic rhinitis, GERD, OA and T2DM. Prior to admission was taking Pioglitazone 30 mg daily and
Jardiance 25 mg daily. A1C 8.2%, today cr .8, eGFR > 60.
Patient is awake alert and oriented, able to discuss diabetes management. States his primary doctor, Saurav, manages his diabetes. Discussed Actos and implications for heart failure, he is in agreement to stop. He states he did not tolerate
metformin, Ozempic or Trulicity due to GI upset, diarrhea and or vomiting. He has a Dex Com G6 at home and will resume when he is home
POD 3 s/p CABG x 2. Transitioned from glycemic protocol insulin infusion to Farxiga 10 mg daily and Januvia 100 mg daily with moderate corrective insulin. HS glucose 185, fasting this AM 160, (nurse reports patient ate samaria crackers before
glucose checked). Cr .9, eGFR > 60. Discussed amount of carbohydrate eaten at each meal, patient had two desserts last evening. He is agreeable will cut back to just one.
Discussed with nurse.
Will follow
Diabetes History
- -
Type of Diabetes: 2
Pre-Admission Diabetes Regimen
09/10/24
04:13
Creatinine 0.9
Lab Results
Hemoglobin A1c 8.2 % (4.0-5.6) H 08/27/24 08:42
Insulin Pump Settings
IP Diabetes Regimen
09/09/24 09/09/24 09/09/24
11:12 13:08 15:07
Glucose
POC Glucose 127 H 116 H 139 H
09/09/24 09/09/24 09/10/24
17:14 20:26 04:13
Glucose 130 H
POC Glucose 183 H 185 H
09/10/24
08:54
Glucose
POC Glucose 160 H
Meal type: Breakfast
Amount consumed: 50%
Patient Education
--- NOTE | 2024-09-10 12:32 | CM ---
Reviewed chart. Met with and Mrs. High and daughter to review discharge plans. He states he is feeling well and maybe able to go home soon. He states he has been ambulating in the hallway and getting in and out the chair without a problem.
We reviewed a home visit by the Transitional Care Nurse. He is agreeable to a home visit. Prior to admission he resides with his spouse in a two story home with two steps to enter. He has a full flight of steps to get to bedroom/full bathroom. He
has a powder room on the first floor. Prior to admission he was independent with ambulation and adls. He does not have any DME in the home. He has a prescription plan and uses [facility]. His spouse will be available at home to assist in his
care if needed. He also has a supportive daughter and son. Medical work-up in progress. The discharge plan is to return home with his spouse and a home visit by the Transitional Care Nurse when medically stable.
[2024-09-10 13:44] LABS: Glucose - Point of Care 192 mg/dl (70-99)
[2024-09-10] MEDS: TYLENOL PO (13:45)
[2024-09-10] MEDS: ULTRAM 50 MG PO ×2 (13:49→21:54)
[2024-09-10] MEDS: CRESTOR 40 MG PO (17:58)
[2024-09-10] MEDS: NOVOLOG FLEXPEN-MODERATE RESISTANCE SC (17:59)
[2024-09-10 18:00] LABS: Glucose - Point of Care 133 mg/dl (70-99)
[2024-09-10] MEDS: SENOKOT-S PO (19:52)
--- NOTE | 2024-09-10 20:21 | PTCARENOTE ---
received pt from previous rn. Pt AAOx4, VSS, NSR per tele monitor HR 80-90s. v wire insulated, +pulses, trace edema, pox 95% on RA, lungs clear diminished, IS 1250, +bs, voids spontaneously, all surgical incisions intact, PIV intact, plan of care
discussed questions encouraged.
[2024-09-10 21:59] LABS: Glucose - Point of Care 134 mg/dl (70-99)
--- NOTE | 2024-09-10 23:31 | PTCARENOTE ---
pt resting comfortably in bed, VSS, NSR per tele monitor, assessment remains unchanged
[2024-09-11 04:01] VITALS: BP 128/76
--- NOTE | 2024-09-11 04:24 | PTCARENOTE ---
routine labs obtained, VSS, NSR per tele monitor, assessment remains unchanged
[2024-09-11 04:32] VITALS: BMI 28.4
[2024-09-11 04:36] LABS: Hematocrit 27.7 % (39.0-52.0); Hemoglobin 9.3 g/dL (13.0-18.0); Mean Corp Hgb Conc. 33.6 g/dL (33.0-37.0); Mean Corpuscular Hgb 31.2 pg (27.0-31.0); Mean Platelet Volume 9.8 fL (7.4-10.4); Platelet Count 140 10^3/uL (130-400); Red Blood Cell Count 2.98 10^6/uL (4.70-6.10); Red Cell Dist. Width 12.7 % (11.5-14.5); White Blood Cell Count 8.8 10^3/uL (4.8-10.8)
[2024-09-11 04:58] LABS: Blood Urea Nitrogen 27 mg/dl (9-20); Calcium 8.1 mg/dl (8.4-10.2); Carbon Dioxide 30 mmol/L (22-30); Chloride 98 mmol/L (98-107); Estimated Creatinine Clearance 71 ml/min; Glucose 95 mg/dl (70-99); Magnesium 2.4 mg/dl (1.6-2.3); Potassium 4.2 mmol/L (3.5-5.1); Sodium 135 mmol/L (135-145); eGFR > 60.00
[2024-09-11] MEDS: TYLENOL 1000 MG PO (05:58)
--- NOTE | 2024-09-11 06:49 | PTCARENOTE ---
Hugo d/c'd, held pressure for 5 mins w/ no incident
--- NOTE | 2024-09-11 07:39 | W.PN.CD ---
Today's Communication / Plan
-
Stable on current therapy.
Likely discharge today.
Impression / Plan
-
Impression/Plan: 69M hypertension, dyslipidemia, NIDDM, TIA (06/22/2024), and severe aortic stenosis with cardiac catheterization demonstrating multivessel coronary artery disease who presents for elective CABG/AVR.
#Severe aortic valve stenosis
-Chronic, progressive.
-S/P #27 Mclaughlin Resilia bioprosthetic SAVR.
-S/P concomittant #35 Atriclip LAAE.
-Routine post operative management.
-Encourage incentive spirometry.
-Ambulate.
#Multivessel coronary artery disease
-Chronic, stable.
-S/P CABG x 2 (Elida�LAD, GSV�mid PDA) with Dr. Sidhu, 09/07/2024.
-Continue routine post operative management as above.
-Continue aspirin, clopidogrel, rosuvastatin, metoprolol.
#Dyslipidemia
-Chronic, stable.
-Continue rosuvastatin.
-Goal LDL < 55.
#NSVT
-Chronic, stable
-Continue beta kaylie.
#HTN
-Chronic, stable.
-Follow in the post operative setting.
-Stable on metoprolol monotherapy.
#LAFB
-Chronic, stable.
#TIA (06/2024)
-Chronic, stable.
-Secondary prevention with DAPT followed by aspirin, rosuvastatin.
#NIDDM,
-Chronic, uncontrolled.
-HgbA1c 8.2%.
-Diabetic service following.
Primary Electrical Prospecting Engineer: Dr. Key
Subjective/Interval History:
Weight down 1.3 kg from yesterday.
Feels well.
DATA:
Cardiac Catheterization, 08/24/2024:
CONCLUSIONS:
1. Right dominant circulation with a 70% lesion in the mid LAD, a 70% lesion in the proximal circumflex and an 80-90% lesion in the ostium of the RPDA followed by a 70% mid RPDA lesion.
2. Mildly elevated filling pressures (PCWP = 18 mmHg at 82.1 kg).
3. Severe to critical aortic valve stenosis by echocardiography.
Physical Exam
Vital Signs/Labs
Vital Signs
Temp Pulse Resp BP Pulse Ox
37.0 C 83 18 128/76 94
09/11/24 04:23 09/11/24 06:00 09/11/24 04:23 09/11/24 04:01 09/11/24 04:23
09/09/24 09/10/24 09/11/24
11:59 11:59 11:59
Actual Weight 84.9 kg 83.5 kg 82.2 kg
09/11/24 04:06
09/11/24 04:06
PT 16.6 Sec (11.4-14.6) H 09/07/24 14:21
INR 1.31 09/07/24 14:21
APTT 30.8 Sec (23.4-35.0) 09/07/24 14:21
Magnesium 2.4 mg/dl (1.6-2.3) H 09/11/24 04:06
Physical Exam
Constitutional: No acute distress and Comfortable
EENT: Anicteric and Moist mucous membranes
Cardiovascular: Rhythm & rate is regular, Pedal edema is absent, JVD pressure is normal, S1S2 is normal and Murmur/rub/gallop absent
Respiratory: Respiratory effort normal, Lungs clear to auscul., Wheeze Absent, Crackles Absent and Rhonchi Absent
GI: Soft, Distention absent, Flat, Non tender and Normal bowel sounds
Neuro/Psych: AO x 3
Data Reviewed
-
Date of Service: September 11, 2024
Medical Decision Making: Reviewed Test Results, Independent Historian Assessment and Test Interpretation
EKG: Tracing Personally Visualized and interpreted and Report Reviewed by me
Echo: Report Reviewed by me
X-Ray/CT/US/MRI/NUC/PET: Image Personally Visualized and interpreted and Report Reviewed by me
Medical Tests (PFT, Pathology etc): Image Personally Visualized and interpreted and Report Reviewed by me
Labs: Labs Reviewed by me
Old Records: Reviewed
--- NOTE | 2024-09-11 07:40 | PN.DE.MGMTRT ---
Insulin Management
- -
09/11/2024: Diabetes Management Follow up
Patient admitted 09/07 for elective CABG. PMH: Severe , Severe 3V CAD, HTN, HLD, Class 1 obesity (BMI 30.1), TIA, Former tobacco use, Probable NANO, Allergic rhinitis, GERD, OA and T2DM. Prior to admission was taking Pioglitazone 30 mg daily and
Jardiance 25 mg daily. A1C 8.2%, today cr .8, eGFR > 60.
Patient is awake alert and oriented, able to discuss diabetes management. States his primary doctor, Saurav, manages his diabetes. Discussed Actos and implications for heart failure, he is in agreement to stop. He states he did not tolerate
metformin, Ozempic or Trulicity due to GI upset, diarrhea and or vomiting. He has a Dex Com G6 at home and will resume when he is home
Pt awake, alert, oriented, sitting up in chair, offers no complaints, able to discuss diabetes care.
POD # 4 s/p CABG x 2. 09/09 Transitioned off glycemic protocol to Farxiga 10 mg daily and Januvia 100 mg daily with moderate corrective insulin.
HS glucose was 134, fasting this AM 95. 2 premeal range 133 to 192.
Will make no changes to current regimen: Farxiga 10mg daily and Januvia 100mg daily
Discussed with nurse. Will cont to follow
Diabetes History
- -
Type of Diabetes: 2
Pre-Admission Diabetes Regimen
09/11/24
04:06
Creatinine 0.9
Lab Results
Hemoglobin A1c 8.2 % (4.0-5.6) H 08/27/24 08:42
Insulin Pump Settings
IP Diabetes Regimen
09/10/24 09/10/24 09/10/24
08:54 13:42 17:57
Glucose
POC Glucose 160 H 192 H 133 H
09/10/24 09/11/24
21:57 04:06
Glucose 95
POC Glucose 134 H
Meal type: Breakfast
Amount consumed: 100%
Patient Education
[2024-09-11 07:47] VITALS: BP 97/61
[2024-09-11 07:51] LABS: Glucose - Point of Care 115 mg/dl (70-99)
--- NOTE | 2024-09-11 08:09 | W.PN.CT ---
Today's Communication / Plan
-
-pod #4
-doing well, no issues overnight, ambulates without difficulty
-labs are stable
-+BM
-continue current meds
-encourage IS, OOB
Assessment / Plan
-
Assessment:
-S/p Median sternotomy/AVR (#27 Inspiris Resilia)/CABG x 2 (JULIETA to LAD, GSV to mid-PDA)/R EVH/ELAA (35mm AtriClip), by Dr. Sidhu, 09/07/24, pod#4
-Severe /bicuspid valve
-Severe 3v CAD
-LVEF 55% per echo 06/23/24; EF 55-60% per intraop AFTAB
-NSVT
-LAFB
-HTN
-HLD
-T2DM (hgb A1C 8.2)
-Class 1 obesity (BMI 30.1)
-Hx TIA (06/22/24, affected right side)
-Former tobacco use
-Probable NANO
-Allergic rhinitis
-GERD
-OA
-S/p R arthroscopy x 4
-S/p Appendectomy, 2013
-S/p Teeth implants/full upper and lower dentures
-Acute postop blood loss/Anemia (stable without blood transfusion)
-Acute postop atelectasis
-Acute postop hypovolemia with subsequent hypervolemia
-Acute intraop VT required 20 joules internal defibrillation with subsequent bradycardia/idioventricular rhythm in the 20's S/p dobutamine gtt
-Acute postop tachycardia
-Acute postop hyponatremia, 133
Discussed patient care with: Nursing and Care Team
Subjective
Procedure
-S/p Median sternotomy/AVR (#27 Inspiris Resilia)/CABG x 2 (JULIETA to LAD, GSV to mid-PDA)/R EVH/ELAA (35mm AtriClip), by Dr. Sidhu, 09/07/24
-
Date of Service: September 11, 2024
Objective Data
-
Lab Results
09/11/24 04:06
09/11/24 04:06
PT 16.6 Sec (11.4-14.6) H 09/07/24 14:21
INR 1.31 09/07/24 14:21
APTT 30.8 Sec (23.4-35.0) 09/07/24 14:21
Vital Signs
Vital Signs
Temp Pulse Resp BP Pulse Ox
98.2 F 84 17 97/61 96
09/11/24 07:53 09/11/24 08:02 09/11/24 07:53 09/11/24 07:47 09/11/24 08:00
CT Intake/Output/Weight
09/10/24 09/11/24 09/11/24
18:59 06:59 18:59
Intake Total 290 / 290 250 / 250
Output Total 325 / 325
Balance 290 / -35 -325 / -35 250 / 250
SaO2: 96
Physical Exam
-
General: AOx3
Cardiovascular: No Murmurs and No Rub
Respiratory: Clear and Decreased Breath Sounds
Sternum: Stable
Incision: Clean, Dry and Dressing Intact
Extremities: No Edema
Abdomen: soft, nontender, ? mildly distended
Data Reviewed
-
Lab Results: Results Reviewed
Medications: Active Meds Reviewed
Chest X-Ray: Report Reviewed and Image Reviewed
ECG: Report Reviewed and Image Reviewed
[2024-09-11 08:35] VITALS: BP 113/79
[2024-09-11] MEDS: SENOKOT-S 1 TABLET PO (08:35)
[2024-09-11] MEDS: PROTONIX 40 MG PO (08:35)
[2024-09-11] MEDS: NEURONTIN 100 MG PO (08:35)
[2024-09-11] MEDS: LOW STRENGTH ASPIRIN 81 MG PO (08:35)
[2024-09-11] MEDS: ZYRTEC 10 MG PO (08:35)
[2024-09-11] MEDS: BACTROBAN 2% OINTMENT 1 APPLIC NASAL (08:35)
[2024-09-11] MEDS: MAGNESIUM OXIDE 500 MG PO (08:35)
[2024-09-11] MEDS: PLAVIX 75 MG PO (08:35)
[2024-09-11] MEDS: FARXIGA 10 MG PO (08:35)
[2024-09-11] MEDS: JANUVIA 100 MG PO (08:35)
[2024-09-11] MEDS: PACERONE 400 MG PO (08:36)
[2024-09-11] MEDS: TOPROL XL 12.5 MG PO (08:36)
[2024-09-11] MEDS: NOVOLOG FLEXPEN-MODERATE RESISTANCE SC (08:48)
[2024-09-11] MEDS: NSS IV (08:49)
--- NOTE | 2024-09-11 09:03 | W.DCSUMMARY ---
Discharge Summary
Discharge Data
Date of Admission: 09/07/24
Date of Discharge: 09/11/24
-
Pending Results: No
Hospital Course
Primary care physician: Shravan Mg
Outpatient fisher troll line: Kirill Key
Inpatient consultants: [facility], diabetes nurse practitioner
Procedures:
1. AVR/CABG
Primary Diagnosis:
1. Bicuspid aortic valve with aortic stenosis
Secondary Diagnoses:
1. Triple-vessel coronary artery disease
2. Hypertension
3. Hyperlipidemia
4. Obesity (BMI 30)
5. Type 2 diabetes (A1c 8.2)
6. GERD
7. History of TIA
8. Allergic rhinitis
9. Postoperative weight gain/fluid retention
HPI: 69-year-old male was electively admitted on 09/17/2024 for AVR/CABG
Hospital course: Patient underwent an AVR #27 Inspiris Resilia tissue valve, CABG x 2 with MATHEWS to LAD and saphenous vein graft to PDA, and a left atrial appendage number [address] Tomy Sidhu. Postprocedure AFTAB reported an EF of
55-60% with AV mean gradient of 5 mmHg. Patient received no intraoperative blood products and returned to CVICU on Levophed, Precedex, and insulin. Patient was extubated at 1745. Levophed was weaned off on Postoperative day #1. Insulin maintained
and patient evaluated by diabetes nurse practitioner for medication adjustment. Chest tubes were discontinued on postoperative day #2 and insulin discontinued. Patient was started on Farxiga, and Januvia. Patient was diuresed with Lasix 40 mg IV
with resultant 875 cc of urine output. Patient again diuresed on postoperative day #3. Right IJ cordis was removed and patient tolerating beta-kaylie. On postoperative day #4, patient underwent two-view chest x-ray which reported no pleural
effusion or pneumothorax. Wires were clipped to skin level. Amiodarone is not needed on discharge as no arrhythmias were noted. Lisinopril will be resumed at ID reduced dose of 2.5 mg daily as patient normotensive during hospitalization.
Home medication changes:
Stop:
Actos
Lasix
Change:
Prevacid to Protonix
Lisinopril 10 mg reduced to 2.5 mg
Discharge Plan
-
Patient Disposition: Home (Routine Discharge)
Discharge Diagnosis/Procedures: AVR/CABG, left atrial appendage clip
Condition: Good
Diet: Low Cholesterol, Low Sodium and Diabetic, Carb Controlled
Activity: No strenuous activity
Driving Restrictions: Not until seen by your Dr
Bathing Restrictions: OK to Shower
Other Services: Cardiac Rehab
Specialty Instructions: Weigh Daily- Call MD for wt gain/loss 3 lbs overnight/5 lbs in 1 week
Referrals:
CT Transitional Care Nurse [Outside] - in one to two days
(
The Cardiothoracic Transitional Care Nurse will call you to set up a visit in 1-2 days.)
[facility] [Outside] - 10/13/24 1:00 pm
(Cardiac Rehab Orientation appointment and� First Exercise appointment is on 10/13/24 at 1 PM
The Cardiac Rehab gym is located on the first floor of the [facility].)
Shravan Mg MD [Family Provider] - in four to six weeks (Please make an apppointment in four to six weeks. )
Mariza Matthews CRNP [Specified Professional Personl] - 10/19/24 10:00 am (Your appointment on Monday, September 16, 2024 at 1:00 p.m. has been cancelled.)
Tomy Sidhu MD [Active] - 10/06/24 1:30 pm
Prescriptions:
New
clopidogrel 75 mg Tablet
75 mg PO DAILY Qty: 30 2RF
pantoprazole 40 mg Tablet,Delayed Release (Dr/Ec)
40 mg PO DAILY Qty: 30 1RF
gabapentin 100 mg Capsule
100 mg PO TID Qty: 30 0RF
Januvia 100 mg Tablet
100 mg PO DAILY Qty: 30 1RF
lisinopril 5 mg tablet
2.5 mg PO DAILY Qty: 30 1RF
Continued
cetirizine 10 mg Tablet
10 mg PO DAILY
Jardiance 25 mg Tablet
25 mg PO DAILY
rosuvastatin 40 mg Tablet
40 mg PO QPM Qty: 30 0RF
acetaminophen 500 mg Tablet
1,000 mg PO Q6H PRN (Reason: pain)
aspirin 81 mg tablet,delayed release (DR/EC)
81 mg PO DAILY
metoprolol succinate [Toprol XL] 25 mg tablet extended release 24 hr
25 mg PO DAILY
Discontinued
lisinopril 10 mg Tablet
10 mg PO DAILY
lansoprazole [Prevacid 24Hr] 15 mg Capsule,Delayed Release(Dr/Ec)
15 mg PO DAILYPRN PRN (Reason: gi issues)
pioglitazone 30 mg Tablet
30 mg PO DAILY
furosemide [Lasix] 20 mg tablet
20 mg PO DAILY
Discharge Orders:
Discharge Patient (As Directed); Ordered 09/11/24
Ordered By: Lizzy Angel
Care Plan Goals
Care Plan Goals:
Problem: Readiness for enhanced knowledge related to diagnosis and treatment plan
Goal: Understand your diagnosis and treatment plan needs, including medications if applicable.
Instructions: Know your diagnosis, underlying causes and treatment plan options, including medications if applicable. Consult with your health care team to learn about your diagnosis and treatment plan, including medications if applicable.
Discharge Date and Time
Print Language: SENEGALESE
--- NOTE | 2024-09-11 09:14 | PTCARENOTE ---
Patient received from shift commander resting oob in chair, AAO X 3, states pain controlled at this time. NSR via cm, SaO2 @ 96% on RA. Epicardial V-wire, insulated to chest wall. All procedural sites stable. Patient ambulatory ad juanito, strong and
steady. Patient updated to plan of care for the day, including pending d/c home later today. See work list for full assessment and interventions performed.
[2024-09-11 09:19] VITALS: BP 99/67
[2024-09-11 09:25] VITALS: BP 110/68
[2024-09-11 09:35] VITALS: BP 110/68; BP 99/67; PULSE 89; O2SAT 94; O2SAT 98
--- NOTE | 2024-09-11 10:19 | W.PN.UPDATE ---
Update Note
Progress Note Update
No pacing required since surgery. 2 ventricular epicardial wires were clipped to skin level.
--- NOTE | 2024-09-11 12:03 | CM ---
Reviewed chart. Met with and Mrs. High to review discharge plans. He states he is feels well and maybe able to go home soon. We reviewed a home visit by the Transitional Care Nurse. He is agreeable to a home visit. Prior to admission he
resides with his spouse in a two story home with two steps to enter. He has a full flight of steps to get to bedroom/full bathroom. He has a powder oom on the first floor. Prior to admission he was independent with ambulation and adls. He ambulated
600 feet yesterday. He has a prescription plan and uses [facility]. His spouse will be home to assist in his care if needed. He has a supportive daughter and son who resides in the area. Medical work-up in progress. The discharge plan is to
return home with spouse and a home visit by the Transitional Care Nurse when medically stable.
[2024-09-11] MEDS: ULTRAM 25 MG PO (12:05)
--- NOTE | 2024-09-11 12:29 | PTCARENOTE ---
Patient set up to shower, completed independently. PIV removed. Discharge instructions thoroughly reviewed w/patient and spouse, all questions answered. Patient and all belongings transported to waiting vehicle for d/c home.
== END 2024-09-11 12:41 | disposition home or self-care (01) | DRG 219 ==
LOC: CVICU 04:46
PROVIDERS: Anesthesiology; Clinical Nurse Specialist Acute Care; ADMITTING PHYSICIAN Thoracic Surgery (Cardiothoracic Vascular Surgery); CONSULT PHYSICIAN Internal Medicine; FAMILY PHYSICIAN Family Medicine
PROC: 02RF08Z Replacement of Aortic Valve with Zooplastic Tissue, Open Approach (ICD-10-PCS; 2024-09-07)
PROC: 06BP4ZZ Excision of Right Saphenous Vein, Percutaneous Endoscopic Approach (ICD-10-PCS; 2024-09-07)
PROC: 5A1221Z Performance of Cardiac Output, Continuous (ICD-10-PCS; 2024-09-07)
PROC: 02L70CK Occlusion of Left Atrial Appendage with Extraluminal Device, Open Approach (ICD-10-PCS; 2024-09-07)
PROC: 021009W Bypass Coronary Artery, One Artery from Aorta with Autologous Venous Tissue, Open Approach (ICD-10-PCS; 2024-09-07)
PROC: 02100ZC Bypass Coronary Artery, One Artery from Thoracic Artery, Open Approach (ICD-10-PCS; 2024-09-07)
PROC: B24BZZ4 Ultrasonography of Heart with Aorta, Transesophageal (ICD-10-PCS; 2024-09-07)
DX: Q23.81 Bicuspid aortic valve (principal); I49.01 Ventricular fibrillation; D62 Acute posthemorrhagic anemia; J98.11 Atelectasis; E87.1 Hypo-osmolality and hyponatremia; I97.790 Other intraoperative cardiac functional disturbances during cardiac surgery; I10 Essential (primary) hypertension; I25.10 Atherosclerotic heart disease of native coronary artery without angina pectoris; E78.2 Mixed hyperlipidemia; E11.65 Type 2 diabetes mellitus with hyperglycemia; E66.9 Obesity, unspecified; K21.9 Gastro-esophageal reflux disease without esophagitis; J30.9 Allergic rhinitis, unspecified; E66.811 Obesity, class 1; E87.70 Fluid overload, unspecified; E86.1 Hypovolemia; R00.0 Tachycardia, unspecified; Y83.2 Surgical operation with anastomosis, bypass or graft as the cause of abnormal reaction of the patient, or of later complication, without mention of misadventure at the time of the procedure; Z68.30 Body mass index [BMI] 30.0-30.9, adult; Z79.82 Long term (current) use of aspirin; Z79.84 Long term (current) use of oral hypoglycemic drugs; Z79.899 Other long term (current) drug therapy; Z86.73 Personal history of transient ischemic attack (TIA), and cerebral infarction without residual deficits; Z87.891 Personal history of nicotine dependence
CPT/HCPCS: 88305; 88311; 71045; 71046; 80048; 80053; 81003; 81015; 82248; 82330; 82565; 82805; 82810; 82947; 82962; 83036; 83735; 84132; 84302; 84520; 85014; 85018; 85025; 85027; 85049; 85610; 85730; 86850; 86900; 86901; 86920; 87070; 87147; 93005; 93312; 93320; 93325; 93880; 94002; 94010

== ENCOUNTER 2024-10-19 08:44 | Outpatient (RCR) | payer OTHER, MEDICARE, SELFPAY ==
[2024-10-13 14:46] LABS: Glucose - Point of Care 142 mg/dl (70-99)
[2024-10-13 15:19] LABS: Glucose - Point of Care 137 mg/dl (70-99)
[2024-10-14 09:15] LABS: Glucose - Point of Care 156 mg/dl (70-99)
[2024-10-14 11:03] LABS: Glucose - Point of Care 163 mg/dl (70-99)
[2024-10-16 09:24] LABS: Glucose - Point of Care 162 mg/dl (70-99)
[2024-10-16 10:26] LABS: Glucose - Point of Care 131 mg/dl (70-99)
[2024-10-19 08:16] LABS: Glucose - Point of Care 155 mg/dl (70-99)
[2024-10-19 09:14] LABS: Glucose - Point of Care 143 mg/dl (70-99)
== END 2024-10-19 23:59 | disposition home or self-care (01) ==
LOC: CRHB 08:44
PROVIDERS: ATTENDING PHYSICIAN Internal Medicine Cardiovascular Disease
DX: I25.10 Atherosclerotic heart disease of native coronary artery without angina pectoris (principal); Z95.1 Presence of aortocoronary bypass graft (principal); Z95.2 Presence of prosthetic heart valve
CPT/HCPCS: 82962; G0422; G0423

== ENCOUNTER → 2024-11-03 09:06 | Outpatient (REF) | payer OTHER, SELFPAY | LOC: RCS 09:06 | PROVIDERS: ATTENDING PHYSICIAN Nurse Practitioner; FAMILY PHYSICIAN Family Medicine; OTHER PHYSICIAN Internal Medicine Cardiovascular Disease | DX: I35.0 Nonrheumatic aortic (valve) stenosis (principal) | CPT/HCPCS: 93306 ==

== ENCOUNTER 2024-11-18 10:41 | Outpatient (RCR) | payer OTHER, MEDICARE, SELFPAY ==
[2024-10-21 09:25] LABS: Glucose - Point of Care 148 mg/dl (70-99)
[2024-10-21 10:24] LABS: Glucose - Point of Care 140 mg/dl (70-99)
[2024-10-23 09:22] LABS: Glucose - Point of Care 181 mg/dl (70-99)
[2024-10-23 10:26] LABS: Glucose - Point of Care 159 mg/dl (70-99)
[2024-11-06 10:24] LABS: Glucose - Point of Care 163 mg/dl (70-99)
== END 2024-11-18 23:59 | disposition home or self-care (01) ==
LOC: CRHB 10:41
PROVIDERS: ATTENDING PHYSICIAN Internal Medicine Cardiovascular Disease
DX: Z95.1 Presence of aortocoronary bypass graft (principal); Z95.2 Presence of prosthetic heart valve
CPT/HCPCS: 82962; G0422; G0423

== ENCOUNTER 2024-12-18 14:51 | Outpatient (RCR) | payer OTHER, SELFPAY ==
[2024-12-16 16:10] LABS: Glucose - Point of Care 151 mg/dl (70-99)
== END 2024-12-18 23:59 | disposition home or self-care (01) ==
LOC: CRHB 14:51
PROVIDERS: ATTENDING PHYSICIAN Internal Medicine Cardiovascular Disease
DX: Z95.1 Presence of aortocoronary bypass graft (principal); I25.10 Atherosclerotic heart disease of native coronary artery without angina pectoris (principal); Z95.2 Presence of prosthetic heart valve
CPT/HCPCS: 82962; G0422; G0423

== ENCOUNTER 2025-01-04 15:30 | Outpatient (RCR) | payer OTHER, SELFPAY | END 2025-01-06 13:14 | disposition home or self-care (01) | LOC: CRHB 15:30 | PROVIDERS: ATTENDING PHYSICIAN Internal Medicine Cardiovascular Disease | DX: I25.10 Atherosclerotic heart disease of native coronary artery without angina pectoris (principal); Z95.1 Presence of aortocoronary bypass graft; Z95.2 Presence of prosthetic heart valve | CPT/HCPCS: G0422; G0423 ==